=== PATIENT | male | born 1955 | race Caucasian/White ===

== ENCOUNTER → 2016-05-19 | Outpatient (CLI) | payer OTHER ==
[~2016-05-19] MED LIST: ALBU1AER9 INH; ASPCH81X PO; LISI10TA PO; LOVA40TA4 PO; MULT-506 PO; RANI1TAB77 PO
[2016-05-19 12:28] LABS: ALT/SGPT 34 U/L (12-78); AST/SGOT 22 U/L (15-37); BLOOD UREA NITROGEN 19 mg/dl (7-18); BUN/CREATININE RATIO 19.3 (10-20); CALCIUM 9.1 mg/dl (8.5-10.1); CARBON DIOXIDE 28 mmol/L (21-32); CHLORIDE 107 mmol/L (98-107); GLUCOSE 98 mg/dl (70-99); POTASSIUM 4.3 mmol/L (3.5-5.1); SODIUM 141 mmol/L (136-145)
[2016-05-19 12:31] LABS: ALB/GLOB RATIO 1.1 (0.9-2); ALKALINE PHOSPHATASE 67 U/L (45-117); CHOLESTEROL 160 mg/dl (0-200); CHOLESTEROL/HDL RATIO 3.5; HDL CHOLESTEROL 46 mg/dl; LDL CHOLESTEROL CALCULATED 78 mg/dl; TRIGLYCERIDES 182 mg/dl (0-150); VERY LOW DENSITY LIPOPROT CALC 36 mg/dl
== END | disposition home or self-care (01) ==
LOC: C.LABBFT 10:39
PROVIDERS: ATTEND Nurse Practitioner
DX: E78.5 Hyperlipidemia, unspecified (principal); Z11.59 Encounter for screening for other viral diseases

== ENCOUNTER → 2017-05-04 | Outpatient (CLI) | payer OTHER ==
[2017-05-04 12:28] LABS: HEMATOCRIT 42.8 % (42-52); HEMOGLOBIN 14.8 g/dL (14.0-18.0); MEAN CELL VOLUME 92.8 fL (80-100); MEAN CORPUSCULAR HEMOGLOBIN 32.1 pg (25-34); MEAN CORPUSCULAR HGB CONC 34.6 g/dl (32-36); MEAN PLATELET VOLUME 9.9 fL (7.4-10.4); PLATELET COUNT 210 K/uL (130-400); RED CELL DISTRIBUTION WIDTH CV 13.6 % (11.5-14.5); WHITE BLOOD COUNT 7.68 K/uL (4.8-10.8)
[2017-05-04 12:39] LABS: ALBUMIN 4.1 gm/dl (3.4-5.0); ALT/SGPT 28 U/L (12-78); BLOOD UREA NITROGEN 19 mg/dl (7-18); CALCIUM 8.9 mg/dl (8.5-10.1); CARBON DIOXIDE 25 mmol/L (21-32); CHOLESTEROL 157 mg/dl (0-200); CREATININE 1.08 mg/dl (0.60-1.40); GLUCOSE 104 mg/dl (70-99); POTASSIUM 3.8 mmol/L (3.5-5.1); SODIUM 138 mmol/L (136-145)
[2017-05-04 12:44] LABS: ALKALINE PHOSPHATASE 59 U/L (45-117); AST/SGOT 19 U/L (15-37); LDL CHOLESTEROL CALCULATED 73 mg/dl; TOTAL PROTEIN 7.2 gm/dl (6.4-8.2)
== END | disposition home or self-care (01) ==
LOC: C.LABBFT 09:09
PROVIDERS: ATTEND Nurse Practitioner
DX: E78.5 Hyperlipidemia, unspecified (principal); Z12.5 Encounter for screening for malignant neoplasm of prostate

== ENCOUNTER 2024-03-12 11:02 | Inpatient (IN) ==
--- NOTE | 2024-03-12 11:29 | Emergency Department Note ---
Impression & Plan Generalized weakness, Ambulatory dysfunction ED Provider Note HISTORY OF PRESENT ILLNESS: Patient is a 68-year-old male presenting with right hand numbness, gait instability and bilateral leg weakness. Patient states that he woke up this morning and his entire right hand felt like he had slept on it wrong. He locates the numbness from the wrist down. Denies any numbness or tingling in the rest of the arm. He states that he got up out of bed and felt very unsteady on his feet and had to grab for a cane, which she normally does not ambulate with. He states that he was very unsteady and felt like his legs were going to give out and so he called 911. He denies any chest pain or shortness of breath. He is complaining of a generalized headache. Denies any anticoagulation use. Denies any DVT or PE history. Denies any abdominal pain, nausea or vomiting. Denies any changes in vision. ROS: as above PHYSICAL EXAM: Constitutional: Patient appears in no acute distress. HENT: Head: Normocephalic and atraumatic. Eyes: EOMI, PERRL Mouth/Throat: Mucous membranes moist. Neck: Trachea midline. Neck supple. Cardiovascular: RRR, No murmurs, rubs or gallops. Intact distal pulses. Pulmonary/Chest: No respiratory distress. Breath sounds clear and equal bilaterally. No wheezes or rales. Abdominal: Abdomen soft, no tenderness, rebound or guarding. Musculoskeletal: No edema, tenderness or deformity noted. Skin: Warm and dry. No rash, erythema, pallor or cyanosis Psychiatric: Appropriate mood and affect for situation. Neurological: Alert and keenly responsive. Facies symmetric. Able to raise eyebrows, close eyes, smile, puff mouth, stick out tongue, move tongue left and right and raise palate symmetrically. Able to shrug shoulders. PERRLA. SILT to forehead below eye and at jawline. Can hear soft noise bilaterally. Good finger to nose. Strength 5/5 in bilateral upper and lower extremities. SILT throughout bilateral upper and lower extremities. MDM: - Vitals signs stable. - History obtained via patient. History as above. - Patient has no focal neurological deficits on examination. NIH stroke scale 0. Symptoms started upon waking today, so not a candidate for TNK. - Chronic conditions affecting care: HTN; HLD; COPD - Differential diagnoses include, but are not limited to: CVA; intracranial hemorrhage; ACS; pneumonia; viral syndrome; dysrhythmia; electrolyte abnormality - Order placed for continuous cardiac monitoring. At this time, monitor showed rate of 78 bpm with normal sinus rhythm, per my interpretation. - External medical records reviewed. - EKG interpreted by myself showed normal sinus rhythm. Rate 80 bpm. QT 410. No acute ischemic changes. Noted to have an incomplete right bundle branch block. - Laboratory workup interpreted by myself showed normal WBC; normal PT/INR; slight hypokalemia (K 3.4); hyperglycemia (glucose 174) with normal anion gap; normal troponin; normal lipase - Viral respiratory panel negative - CXR negative for pneumonia, per my interpretation - CT head wo contrast negative for acute pathology. Noted have a 1.2 cm ill- defined hypodense focus in the periventricular/subcortical right frontal lobe which is new compared to November 2019 study. Radiology notes this could be progressive white matter disease versus age-indeterminate lacunar infarct. - CTA head negative for acute pathology per radiology. - CTA neck showed atherosclerosis of the carotid bulbs without high-grade stenosis and moderate to high-grade stenosis of the distal vertebral arteries, per radiology. - Patient was ambulated by nursing staff and he was able to walk on his own, but was slightly unsteady and complaining of feeling very dizzy and lightheaded. - Discussion was had with case therapist about patient's case and need for admission - Hospitalist consulted for admission - [facility] ASSESSMENT AND PLAN: Diagnosis: Generalized weakness; ambulatory dysfunction Plan: Admit Past Med/Surg History Problem List Stroke-like symptoms Ambulatory dysfunction (Acute) Generalized weakness (Acute) COPD (chronic obstructive pulmonary disease) (Chronic) Dyslipidemia (Chronic) Hypertension (Chronic) BPH loc w urin obs/LUTS (Chronic) Erectile dysfunction (Chronic) Surgical History History of craniotomy History of hernia repair History of appendectomy Social History Smoking Status: Former smoker Tobacco Type: Cigarettes Preferred Language: Slovak Feels Safe at Home: Yes Allergies Allergies Allergy/AdvReac Type Severity Reaction Status Date / Time No Known Drug Allergies Allergy Unknown . Verified 11/30/19 09:38 Home Meds Home Medications Medication Instructions Recorded Confirmed lisinopril 10 mg tablet 10 mg PO DAILY 02/06/19 03/12/24 budesonide 160 mcg-glycopyr 9 1 inh inhalation BID 03/12/24 03/12/24 mcg-formot 4.8 mcg/actuation HFA inhaler (Breztri Aerosphere) gabapentin 100 mg capsule 300 mg PO HS PRN Pain 03/12/24 03/12/24 montelukast 10 mg tablet 10 mg PO DAILY 03/12/24 03/12/24 rosuvastatin 20 mg tablet 20 mg PO DAILY 03/12/24 03/12/24 Previous Rx's Medication Instructions Recorded albuterol sulfate 90 mcg/actuation 2 puffs inhalation .COMPLEX PRN 11/22/18 aerosol inhaler (Ventolin HFA) shortness of breath or wheezing #18 grams aspirin 81 mg tablet,delayed 81 mg PO DAILY #30 tabs 12/06/18 release tamsulosin 0.4 mg capsule 0.4 mg PO DAILY #30 caps 08/09/19 finasteride 5 mg tablet 5 mg PO DAILY #90 tabs 09/20/19 cyclobenzaprine 10 mg tablet 10 mg PO TID PRN muscle spasm #20 11/30/19 tabs Results & Data (ED) Vital Signs Vital Signs - 24 hr 03/12/24 11:09 03/12/24 11:10 03/12/24 11:31 Temperature 36.5 C Temperature Source Oral Pulse Rate 83 89 77 Pulse Rate [Apical] Respiratory Rate 20 16 Respiratory Effort / Characteristics Non-Labored Respiratory Depth Normal Blood Pressure 127/75 114/90 Blood Pressure [Left Arm] Blood Pressure Mean 92 95 Blood Pressure Mean [Left Arm] Pulse Oximetry 97 96 Oxygen Delivery Method Room Air Sepsis Recent Fever Within 48 Hours No Sepsis New/Unexplained Change in Mental Status No Sepsis Action Taken by Nursing No Action Required 03/12/24 11:37 03/12/24 14:13 Temperature Temperature Source Pulse Rate Pulse Rate [Apical] 83 Respiratory Rate 16 Respiratory Effort / Characteristics Respiratory Depth Blood Pressure Blood Pressure [Left Arm] 112/71 Blood Pressure Mean Blood Pressure Mean [Left Arm] 84 Pulse Oximetry 96 100 Oxygen Delivery Method Room Air Room Air Sepsis Recent Fever Within 48 Hours Sepsis New/Unexplained Change in Mental Status Sepsis Action Taken by Nursing Laboratory Data 03/12/24 11:34 03/12/24 11:34 Lab Results 03/12/24 03/12/24 03/12/24 Range/Units 11:24 11:34 12:33 WBC 8.84 (4.8-10.8) K/ul RBC 5.21 (4.70-6.10) M/uL Hgb 16.1 (14.0-18.0) g/dl Hct 45.8 (42.0-52.0) % MCV 87.9 (80.0-100.0) fL MCH 30.9 (25.0-34.0) pg MCHC 35.2 (32.0-36.0) g/dL RDW Std Deviation 43.8 (36.4-46.3) fL RDW Coeff of Jose M 13.7 (11.5-14.5) % Plt Count 254 (130-400) K/uL MPV 9.5 (9.4-12.4) fL Immature Gran % (Auto) 0.3 % Neut % (Auto) 83.5 % Lymph % (Auto) 10.4 % [place] % (Auto) 5.4 % Eos % (Auto) 0.1 % Baso % (Auto) 0.3 % Neut # (Auto) 7.37 H (1.40-6.50) K/uL Lymph # (Auto) 0.92 L (1.20-3.40) K/uL [place] # (Auto) 0.48 (0.11-0.59) K/uL Eos # (Auto) 0.01 (0.00-0.50) K/uL Baso # (Auto) 0.03 (0.00-0.20) K/uL Immature Gran # (Auto) 0.03 (0.01-0.20) K/uL PT Cancelled 11.6 INR Cancelled 1.1 Sodium 136 (136-145) mmol/L Potassium 3.4 L (3.5-5.1) mmol/L Chloride 104 (98-107) mmol/L Carbon Dioxide 22 (21-32) mmol/L Anion Gap 10 (3-11) BUN 19 (6-23) mg/dl Creatinine 1.11 (0.6-1.4) mg/dl Est Cr Clr Drug Dosing 67.1 ml/min eGFR 72.33 BUN/Creatinine Ratio 17.1 (10-20) Glucose 172 H (70-99(Fasting)) mg/dl Calcium 9.5 (8.6-10.3) mg/dl Magnesium 2.1 (1.7-2.4) mg/dl Total Bilirubin 0.8 (0.2-1.0) mg/dl AST 21 (13-39) U/L ALT 16 (7-52) U/L Alkaline Phosphatase 67 (34-104) U/L Troponin I High Sens 11.2 (0-20) pg/ml Total Protein 7.6 (6.0-8.3) gm/dl Albumin 4.6 (3.4-5.0) gm/dl Globulin 3.0 (2.5-4.0) gm/dl Albumin/Globulin Ratio 1.5 (0.9-2) Lipase 45 (11-82) U/L Adenovirus (PCR) Not Detected (NotDetected) B. pertussis DNA (PCR) Not Detected (NotDetected) B.parapertussis DNA PCR Not Detected (NotDetected) C. pneumoniae DNA (PCR) Not Detected (NotDetected) Coronavirus OC43 (PCR) Not Detected (NotDetected) Coronavirus HKU1 (PCR) Not Detected (NotDetected) Coronavirus 229E (PCR) Not Detected (NotDetected) SARS-CoV-2 (PCR) Not Detected (NotDetected) Coronavirus NL63 (PCR) Not Detected (NotDetected) Human Metapneumovir PCR Not Detected (NotDetected) Influenza Type A (PCR) Not Detected (NotDetected) Influenza Type B (PCR) Not Detected (NotDetected) M. pneumoniae (PCR) Not Detected (NotDetected) Parainfluenza 1 (PCR) Not Detected (NotDetected) Parainfluenza 2 (PCR) Not Detected (NotDetected) Parainfluenza 3 (PCR) Not Detected (NotDetected) Parainfluenza 4 (PCR) Not Detected (NotDetected) RSV (PCR) Not Detected (NotDetected) Entero/Rhino (PCR) Not Detected (NotDetected) Administered Medications Discontinued Medications Acetaminophen (Ofirmev) 1,000 mg in 100 mls @ 400 mls/hr IV NOW STA Stop: 03/12/24 11:40 Last Infusion: 03/12/24 11:59 Dose: Infused Documented By: Admin: 03/12/24 11:33 Dose: 400 mls/hr Documented By: DORIS Ioversol (Optiray 320 125ml) 120 ml IV ONCE ONE Stop: 03/12/24 12:19 Last Admin: 03/12/24 12:19 Dose: 120 ml Documented By: JIMMY Imaging Data Radiologist's Impression: Chest X-Ray 03/12/24 11:09 XR chest 1V portable CLINICAL HISTORY: Chest pain, nonspecific COMPARISON STUDY: None FINDINGS: Heart size and pulmonary vasculature are normal. No effusion, consolidation, or pneumothorax. No acute osseous findings. IMPRESSION: No acute findings. ACT 112: Negative or not required by law. Electronically signed by: Rory Lizama M.D. 03/12/2024 11:[address] 03/12/24 11:26 CT head/brain wo con CLINICAL HISTORY: 68 years-old Male with weakness. Acute weakness TECHNIQUE: Multiple axial CT images of the head were obtained without contrast. A dose lowering technique was utilized adhering to the principles of ALARA. COMPARISON: CTA head and neck of second day, brain MRI 11/12/2019 FINDINGS: No acute intracranial hemorrhage, midline shift, intracranial mass, hydrocephalus, territorial ischemia or abnormal extra-axial collection. Encephalomalacia within the cerebellum redemonstrated. Involutional changes with mild white matter hypodensities redemonstrated suggestive of chronic microvascular ischemic disease. 1.2 cm ill-defined hypodense focus within the subcortical superior right frontal lobe on image 69 series 4 is new/progressed from prior. Prior left suboccipital craniectomy. The paranasal sinuses, mastoid air cells, and middle ear cavities are clear. IMPRESSION: 1. No acute intracranial hemorrhage, midline shift or acute territorial infarct. 2. Involutional changes with suggestion of chronic microvascular disease. 3. 1.2 cm ill-defined hypodense focus in the periventricular/subcortical right frontal lobe appears to be new compared to the 11/12/2019 study which may represent progressive white matter disease versus a small age indeterminate lacunar infarct. 4. Prior suboccipital craniectomy with cerebellar encephalomalacia redemonstrated. ACT 112: Negative or not required by law. The above report was generated using voice recognition software. It may contain grammatical, syntax or spelling errors. Electronically signed by: Barry Little M.D. 03/12/2024 12:31 PM Head CTA 03/12/24 11:26 CT angio head w con CLINICAL HISTORY: R hand numbness; bilat leg weakness TECHNIQUE: CT angiography of the head was performed following intravenous administration of iodinated contrast. Coronal and sagittal MIPS were obtained from the axial data set and were submitted for review. Automated dose lowering techniques and/or adjustment according to patient size were utilized for this examination. All measurements were calculated based on NASCET criteria. CT DOSE: 1060.21 mGy.cm Comparison: Comparison is made to MRI brain 11/12/2019 FINDINGS: CTA Head: The anterior and posterior cerebral circulations are patent. No hemodynamically significant stenosis, aneurysm, dissection, or arteriovenous malformation is shown. IMPRESSION: No occlusion, hemodynamically significant stenosis, aneurysm, dissection, or arteriovenous malformation in the major intracranial arteries. Assessment of stenosis of the internal carotid arteries is based on NASCET criteria. ACT 112: Negative or not required by law. Electronically signed by: Felix Potter M.D. 03/12/2024 12:28 PM Neck CTA 03/12/24 11:26 CT angio neck with con CLINICAL HISTORY: 68 years-old Male with R hand numbness; bilat leg weakness. Acute stroke like symptoms COMPARISON STUDY: CTA head of same day TECHNIQUE: Following the IV administration of 120 mL of Optiray, CT angiogram of the neck was performed from the aortic arch to the skull base. Images are reviewed in the axial, sagittal, and coronal planes. 3-D MIPS images are created and assessed. IV contrast was administered without complication. All measurements were calculated based on NASCET criteria. A dose lowering technique was utilized adhering to the principles of ALARA. FINDINGS: Three-vessel morphology of the thoracic aortic arch. There is patency of the innominate and images including the arteries. The common carotid arteries are patent. Atherosclerosis of the carotid bulbs without significant stenosis. Patent internal carotid arteries. Atherosclerosis of the cavernous, clinoid and supraclinoid segments. There is moderate stenosis of the supraclinoid segment right ICA on image 382 series 7. Dominant right vertebral artery demonstrates multifocal stenoses of the V2 segment secondary to cervical degenerative changes. Prominent atherosclerotic plaque of the V4 segment results in areas of moderate to high-grade stenosis. Developmentally diminutive left vertebral artery demonstrates high-grade stenosis of the V4 segment on image 309 series 7 secondary to calcified plaque. The basilar artery is patent. Short segment focus of high-grade stenosis within the P1 segment left posterior cerebral artery on image 309 series 7. Prior suboccipital craniectomy with cerebellar encephalomalacia. CTA head dictated separately. Unremarkable soft tissues. Lung apices are clear without pneumothorax. Degenerative changes of the cervical spine. IMPRESSION: 1. Atherosclerosis of the carotid bulbs without high-grade stenosis. 2. Moderate to high-grade stenosis of the distal vertebral arteries as above. 3. CTA of the head is dictated separately. ACT 112: Negative or not required by law. The above report was generated using voice recognition software. It may contain grammatical, syntax or spelling errors. Electronically signed by: Barry Little M.D. 03/12/2024 12:37 PM Discharge Plan Visit Data Chief Complaint: Cardiac Assessment Stated Complaint: CARDIAC ASSESSMENT ED Provider: Lulu Bass Discharge Problem: Generalized weakness, Ambulatory dysfunction Forms Stand Alone Forms: [employer] Prescriptions Prescriptions: No Action albuterol sulfate [Ventolin HFA] 90 mcg/actuation HFA aerosol inhaler 2 puffs INH .COMPLEX PRN (Reason: shortness of breath or wheezing) Qty: 18 2RF Rx Instructions: 2 puff INH every 4-6 hours PRN; aspirin 81 mg tablet,delayed release (DR/EC) 81 mg PO DAILY Qty: 30 11RF tamsulosin 0.4 mg capsule 0.4 mg PO DAILY Qty: 30 0RF finasteride 5 mg tablet 5 mg PO DAILY Qty: 90 1RF lisinopril 10 mg tablet 10 mg PO DAILY cyclobenzaprine 10 mg tablet 10 mg PO TID PRN (Reason: muscle spasm) Qty: 20 0RF montelukast 10 mg tablet 10 mg PO DAILY gabapentin 100 mg capsule 300 mg PO HS PRN (Reason: Pain) rosuvastatin 20 mg tablet 20 mg PO DAILY Breztri Aerosphere 160-9-4.8 mcg/actuation HFA aerosol inhaler 1 inh inhalation BID Referrals Referrals: Vani Raya PA-C [Primary Care Provider] -
[2024-03-12] MEDS: ACETAMINOPHEN 1,000 MG/100 ML VIAL IV STA (11:33)
--- NOTE | 2024-03-12 11:47 | XRay Report ---
XR chest 1V portable CLINICAL HISTORY: Chest pain, nonspecific COMPARISON STUDY: None FINDINGS: Heart size and pulmonary vasculature are normal. No effusion, consolidation, or pneumothora x. No acute osseous findings. IMPRESSION: No acute findings. ACT 112: Negative or not required by law. Electronically signed by: Rory Lizama M.D. 03/12/2024 11:46 AM
[2024-03-12 11:50] LABS: Basophils # (auto) 0.03 K/uL (0.00-0.20); Basophils % (auto) 0.3 %; Eosinophils # (auto) 0.01 K/uL (0.00-0.50); Eosinophils % (auto) 0.1 %; Hematocrit (blood only) 45.8 % (42.0-52.0); Hemoglobin 16.1 g/dl (14.0-18.0); Immature Granulocytes # (auto) 0.03 K/uL (0.01-0.20); Immature Granulocytes % (auto) 0.3 %; Lymphocytes # (auto) 0.92 K/uL (1.20-3.40); Lymphocytes % (auto) 10.4 %; Mean Corpuscular Hemoglobin 30.9 pg (25.0-34.0); Mean Corpuscular Hgb Conc 35.2 g/dL (32.0-36.0); Mean Corpuscular Volume 87.9 fL (80.0-100.0); Mean Platelet Volume 9.5 fL (9.4-12.4); Monocytes # (auto) 0.48 K/uL (0.11-0.59); Monocytes % (auto) 5.4 %; Neutrophils # (auto) 7.37 K/uL (1.40-6.50); Neutrophils % (auto) 83.5 %; Platelet Count 254 K/uL (130-400); RDW Coefficient of Variation 13.7 % (11.5-14.5); RDW Standard Deviation 43.8 fL (36.4-46.3); Red Blood Count 5.21 M/uL (4.70-6.10); White Blood Count 8.84 K/ul (4.8-10.8)
--- NOTE | 2024-03-12 11:58 | Electrocardiogram Report ---
Test Reason : Blood Pressure : */* mmHG Vent. Rate : 80 BPM Atrial Rate : 80 BPM P-R Int : 202 ms QRS Dur : 100 ms QT Int : 410 ms P-R-T Axes : 57 -52 67 degrees QTcB Int : 472 ms Normal sinus rhythm Incomplete right bundle branch block Left anterior fascicular block Minimal voltage criteria for LVH, may be normal variant ( R in aVL ) Abnormal ECG No previous ECGs available Confirmed by Handy Gaitan ([id number]) on 03/12/2024 11:57:38 AM Referred By: Confirmed By: Handy Gaitan
[2024-03-12 12:08] LABS: Albumin Globulin Ratio 1.5 (0.9-2); Albumin Level 4.6 gm/dl (3.4-5.0); BUN Creatinine Ratio 17.1 (10-20); Bilirubin,Total 0.8 mg/dl (0.2-1.0); Calcium 9.5 mg/dl (8.6-10.3); Creatinine Clr Calc Pharmacy 67.1 ml/min; Magnesium 2.1 mg/dl (1.7-2.4); Potassium 3.4 mmol/L (3.5-5.1); Total Protein 7.6 gm/dl (6.0-8.3)
[2024-03-12 12:13] LABS: Troponin I High Sensitivity 11.2 pg/ml (0-20)
[2024-03-12] MEDS: OPTIRAY 320 125ml IV ONE (12:19)
--- NOTE | 2024-03-12 12:30 | CT Scan Report ---
CT angio head w con CLINICAL HISTORY: R hand numbness; bilat leg weakness TECHNIQUE: CT angiography of the head was performed following intravenous administration of iodinated contrast. Coronal and sagittal MIPS were obtained from the axial data set and were submitted for rev iew. Automated dose lowering techniques and/or adjustment according to patient size were utilized fo r this examination. All measurements were calculated based on NASCET criteria. CT DOSE: 1060.21 mGy.cm Comparison: Comparison is made to MRI brain 11/12/2019 FINDINGS: CTA Head: The anterior and posterior cerebral circulations are patent. No hemodynamically significan t stenosis, aneurysm, dissection, or arteriovenous malformation is shown. IMPRESSION: No occlusion, hemodynamically significant stenosis, aneurysm, dissection, or arteriovenous malformati on in the major intracranial arteries. Assessment of stenosis of the internal carotid arteries is based on NASCET criteria. ACT 112: Negative or not required by law. Electronically signed by: Felix Potter M.D. 03/12/2024 12:28 PM
--- NOTE | 2024-03-12 12:32 | CT Scan Report ---
CT head/brain wo con CLINICAL HISTORY: 68 years-old Male with weakness. Acute weakness TECHNIQUE: Multiple axial CT images of the head were obtained without contrast. A dose lowering tech nique was utilized adhering to the principles of ALARA. COMPARISON: CTA head and neck of second day, brain MRI 11/12/2019 FINDINGS: No acute intracranial hemorrhage, midline shift, intracranial mass, hydrocephalus, territorial ischem ia or abnormal extra-axial collection. Encephalomalacia within the cerebellum redemonstrated. Involut ional changes with mild white matter hypodensities redemonstrated suggestive of chronic microvascular ischemic disease. 1.2 cm ill-defined hypodense focus within the subcortical superior right frontal l obe on image 69 series 4 is new/progressed from prior. Prior left suboccipital craniectomy. The paranasal sinuses, mastoid air cells, and middle ear cavitie s are clear. IMPRESSION: 1. No acute intracranial hemorrhage, midline shift or acute territorial infarct. 2. Involutional changes with suggestion of chronic microvascular disease. 3. 1.2 cm ill-defined hypodense focus in the periventricular/subcortical right frontal lobe appears t o be new compared to the 11/12/2019 study which may represent progressive white matter disease versus a small age indeterminate lacunar infarct. 4. Prior suboccipital craniectomy with cerebellar encephalomalacia redemonstrated. ACT 112: Negative or not required by law. The above report was generated using voice recognition software. It may contain grammatical, syntax o r spelling errors. Electronically signed by: Barry Little M.D. 03/12/2024 12:31 PM
[2024-03-12 12:35] LABS: Adenovirus PCR Not Detected (NotDetected); Bordetella parapertussis PCR Not Detected (NotDetected); Bordetella pertussis PCR Not Detected (NotDetected); Chlamydia pneumoniae PCR Not Detected (NotDetected); Coronavirus 229E PCR Not Detected (NotDetected); Coronavirus CoV-2 (COVID19)PCR Not Detected (NotDetected); Coronavirus HKU1 PCR Not Detected (NotDetected); Coronavirus NL63 PCR Not Detected (NotDetected); Coronavirus OC43PCR Not Detected (NotDetected); Human Metapneumovirus PCR Not Detected (NotDetected); Influenza A PCR Not Detected (NotDetected); Influenza B PCR Not Detected (NotDetected); Mycoplasma pneumoniae PCR Not Detected (NotDetected); Parainfluenza Virus 1 PCR Not Detected (NotDetected); Parainfluenza Virus 2 PCR Not Detected (NotDetected); Parainfluenza Virus 3 PCR Not Detected (NotDetected); Parainfluenza Virus 4 PCR Not Detected (NotDetected); Respiratory Syncytial VirusPCR Not Detected (NotDetected); Rhinovirus/Enterovirus PCR Not Detected (NotDetected)
--- NOTE | 2024-03-12 12:38 | CT Scan Report ---
CT angio neck with con CLINICAL HISTORY: 68 years-old Male with R hand numbness; bilat leg weakness. Acute stroke like sy mptoms COMPARISON STUDY: CTA head of same day TECHNIQUE: Following the IV administration of 120 mL of Optiray, CT angiogram of the neck was perform ed from the aortic arch to the skull base. Images are reviewed in the axial, sagittal, and coronal pl anes. 3-D MIPS images are created and assessed. IV contrast was administered without complication. Al l measurements were calculated based on NASCET criteria. A dose lowering technique was utilized adhe ring to the principles of ALARA. FINDINGS: Three-vessel morphology of the thoracic aortic arch. There is patency of the innominate and images in cluding the arteries. The common carotid arteries are patent. Atherosclerosis of the carotid bulbs wi thout significant stenosis. Patent internal carotid arteries. Atherosclerosis of the cavernous, clino id and supraclinoid segments. There is moderate stenosis of the supraclinoid segment right ICA on quan ge 382 series 7. Dominant right vertebral artery demonstrates multifocal stenoses of the V2 segment s econdary to cervical degenerative changes. Prominent atherosclerotic plaque of the V4 segment results in areas of moderate to high-grade stenosis. Developmentally diminutive left vertebral artery demons trates high-grade stenosis of the V4 segment on image 309 series 7 secondary to calcified plaque. The basilar artery is patent. Short segment focus of high-grade stenosis within the P1 segment left post erior cerebral artery on image 309 series 7. Prior suboccipital craniectomy with cerebellar encephalomalacia. CTA head dictated separately. Unrema rkable soft tissues. Lung apices are clear without pneumothorax. Degenerative changes of the cervical spine. IMPRESSION: 1. Atherosclerosis of the carotid bulbs without high-grade stenosis. 2. Moderate to high-grade stenosis of the distal vertebral arteries as above. 3. CTA of the head is dictated separately. ACT 112: Negative or not required by law. The above report was generated using voice recognition software. It may contain grammatical, syntax o r spelling errors. Electronically signed by: Barry Little M.D. 03/12/2024 12:37 PM
[2024-03-12 13:33] LABS: INR 1.1 (0.9-1.1); Prothrombin Time 11.6 Seconds (9.0-12.0)
--- NOTE | 2024-03-12 13:56 | History & Physical Report ---
Date of Service March 12, 2024 Assessment & Plan (1) Stroke-like symptoms: Plan: -NIHSS of 4, with right arm/right leg numbness, left facial droop, right leg ataxia -last known normal of 2am, work up with symptoms around 6 am, glucose 145 by EMS -differential includes stroke (possible left MCA distribution), less likely migraine, vertigo, hemorrhage, [place], [place] Plan: -aspirin, statin ordered and given -stroke order set and code stroke ordered -A1c, lipids ordered for risk stratification, check syphyllis as well -MR head ordered -neurology consult (2) Ambulatory dysfunction: Plan: -see above, likely stroke Plan: -PT/OT/speech evals per stroke order set (3) Right calf pain: Plan: -unclear etiology, could be 2/2 fall Plan: -check DVT scan (4) History of craniotomy: Plan: -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 (5) COPD (chronic obstructive pulmonary disease): Plan: -duonebs prn, incentive spirometer (6) Dyslipidemia: Plan: -continue statin (7) Hypertension: Plan: -permissive HTN to 220 systolic (8) BPH loc w urin obs/LUTS: Plan: -continue tamulosin History of Present Illness Chief Complaint: Strokelike Symptoms Primary Care Provider: Vani Raya PA-C Clive Shen Jr is a 68-year-old male with past medical history significant for HLD, HTN, prediabetes, COPD, GERD without esophagitis, BPH with LUTS, SNHL of both ears [wears hearing aids at baseline], PORSCHE [CPAP noncompliant], 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 History obtained from the patient and associated chart review. Patient seen at bedside with Dr. Garcia in the ED. Patient reports that he woke up this morning around 2AM and felt quite unsteady on his feet as both of his lower extremities felt weak. He was able to get out of the house later this morning to go help with turning on the lights at [facility] in [place]. However, he suddenly collapsed to the ground whilst doing so as his knees fully "gave out." This is what prompted the call to EMS. He did not pass out or hit his head when this occurred. He does feel as if his speech is "off" and he is endorsing some numbness/tingling in his right wrist/hand regions which both started around 2AM as well. Knees went weak and he just went down. Was a little wobbly when he got up this morning. Very unsteady gait. L eye vision worse than R. Legally blind. Numbness and tingling from the right wrist down. Chronic numbness in right thumb from a previous injury. Lateral aspect more numb/tingling on right hand. Stopped smoking in 1995. Has not had a drink in 3 weeks. Soreness in the right distal posterior calf region. Had to borrow a cane this morning as he was so unsteady on his feet. More numbness in the RLE>LLE. Speech sounds different per patient. Only gets 2-3 hours of sleep/night. 2AM last known well. Retired. 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 Father had a couple strokes before he passed. Still very wobbly on his feet. No new visual changes. Slight left facial droop on exam. Mild RLE drift. RLE tingly per patient. Some mild upper abdominal pain, seems chronic. Last BM this morning. Discussed code status at length, risks and benefits explained. Patient would like full code at this tie. Allergies Allergy/AdvReac Type Severity Reaction Status Date / Time No Known Drug Allergies Allergy Unknown . Verified 11/30/19 09:38 Home Medications Medication Instructions Recorded Confirmed Type albuterol sulfate 90 mcg/actuation 2 puffs inhalation .COMPLEX PRN 11/22/18 03/12/24 Rx aerosol inhaler (Ventolin HFA) shortness of breath or wheezing #18 grams aspirin 81 mg tablet,delayed 81 mg PO DAILY #30 tabs 12/06/18 03/12/24 Rx release lisinopril 10 mg tablet 10 mg PO DAILY 02/06/19 03/12/24 History tamsulosin 0.4 mg capsule 0.4 mg PO DAILY #30 caps 08/09/19 03/12/24 Rx finasteride 5 mg tablet 5 mg PO DAILY #90 tabs 09/20/19 03/12/24 Rx cyclobenzaprine 10 mg tablet 10 mg PO TID PRN muscle spasm #20 20 03/12/24 Rx tabs budesonide 160 mcg-glycopyr 9 1 inh inhalation BID 03/12/24 03/12/24 History mcg-formot 4.8 mcg/actuation HFA inhaler (Breztri Aerosphere) gabapentin 100 mg capsule 300 mg PO HS PRN Pain 03/12/24 03/12/24 History montelukast 10 mg tablet 10 mg PO DAILY 03/12/24 03/12/24 History rosuvastatin 20 mg tablet 20 mg PO DAILY 03/12/24 03/12/24 History Past Med/Surg History Problem List (Updated 03/12/24 @ 17:37 by Omar Garcia MD) Stroke-like symptoms Ambulatory dysfunction (Acute) Right calf pain History of craniotomy COPD (chronic obstructive pulmonary disease) (Chronic) Dyslipidemia (Chronic) Hypertension (Chronic) BPH loc w urin obs/LUTS (Chronic) Medical History Generalized weakness Erectile dysfunction Surgical History History of hernia repair History of appendectomy Social History Smoking Status: Former smoker Tobacco Type: Cigarettes Preferred Language: Yoruba Feels Safe at Home: Yes Review of Systems Review of Systems: At least ten systems reviewed and negative, except as noted in the HPI. Physical Exam Physical Exam: Gen: A&O 3 NAD HEENT: NCAT, EOMI, not icteric. External ears normal. No rhinorrhea. Moist mucous membranes. Neck: Supple, full range of motion, no observable masses, No meningeal sign. Lungs: No Respiratory distress. CV: RRR, no edema. Abdomen: Soft, nondistended, No rebound tenderness. MSK: No joint swelling, no redness. Skin: No rashes, petechiae, lesions. Normal color per patient. Neuro: NIHSS of 4, dysarthria, right limb ataxia, left sided facial droop, right leg motor drift Psych: Appropriate for situation. Results & Data Results & Data Vital Signs (Past 12 Hours) Vital Signs Temp Pulse Resp BP Pulse Ox O2 Del Method 03/12/24 11:37 96 Room Air 03/12/24 11:31 77 16 114/90 96 03/12/24 11:10 89 03/12/24 11:09 36.5 C 83 20 127/75 97 Room Air Laboratory Results Short CBC 03/12/24 Range/Units 11:34 WBC 8.84 (4.8-10.8) K/ul Hgb 16.1 (14.0-18.0) g/dl Hct 45.8 (42.0-52.0) % Plt Count 254 (130-400) K/uL BMP 03/12/24 11:34 Sodium 136 Potassium 3.4 L Chloride 104 Carbon Dioxide 22 BUN 19 Creatinine 1.11 Glucose 172 H Calcium 9.5 Liver Function 03/12/24 Range/Units 11:34 Total Bilirubin 0.8 (0.2-1.0) mg/dl AST 21 (13-39) U/L ALT 16 (7-52) U/L Alkaline Phosphatase 67 (34-104) U/L Albumin 4.6 (3.4-5.0) gm/dl Diagnostic Findings Chest X-Ray 03/12/24 11:09 XR chest 1V portable CLINICAL HISTORY: Chest pain, nonspecific COMPARISON STUDY: None FINDINGS: Heart size and pulmonary vasculature are normal. No effusion, consolidation, or pneumothorax. No acute osseous findings. IMPRESSION: No acute findings. ACT 112: Negative or not required by law. Electronically signed by: Rory Lizama M.D. 03/12/2024 11:[address] 03/12/24 11:26 CT head/brain wo con CLINICAL HISTORY: 68 years-old Male with weakness. Acute weakness TECHNIQUE: Multiple axial CT images of the head were obtained without contrast. A dose lowering technique was utilized adhering to the principles of ALARA. COMPARISON: CTA head and neck of second day, brain MRI 11/12/2019 FINDINGS: No acute intracranial hemorrhage, midline shift, intracranial mass, hydrocephalus, territorial ischemia or abnormal extra-axial collection. Encephalomalacia within the cerebellum redemonstrated. Involutional changes with mild white matter hypodensities redemonstrated suggestive of chronic microvascu lar ischemic disease. 1.2 cm ill-defined hypodense focus within the subcortical superior right frontal lobe on image 69 series 4 is new/progressed from prior. Prior left suboccipital craniectomy. The paranasal sinuses, mastoid air cells, and middle ear cavities are clear. IMPRESSION: 1. No acute intracranial hemorrhage, midline shift or acute territorial infarct. 2. Involutional changes with suggestion of chronic microvascular disease. 3. 1.2 cm ill-defined hypodense focus in the periventricular/subcortical right frontal lobe appears to be new compared to the 11/12/2019 study which may represent progressive white matter disease versus a small age indeterminate lacunar infarct. 4. Prior suboccipital craniectomy with cerebellar encephalomalacia redemonstrated. ACT 112: Negative or not required by law. The above report was generated using voice recognition software. It may contain grammatical, syntax or spelling errors. Electronically signed by: Barry Little M.D. 03/12/2024 12:31 PM Head CTA 03/12/24 11:26 CT angio head w con CLINICAL HISTORY: R hand numbness; bilat leg weakness TECHNIQUE: CT angiography of the head was performed following intravenous administration of iodinated contrast. Coronal and sagittal MIPS were obtained from the axial data set and were submitted for review. Automated dose lowering techniques and/or adjustment according to patient size were utilized for this examination. All measurements were calculated based on NASCET criteria. CT DOSE: 1060.21 mGy.cm Comparison: Comparison is made to MRI brain 11/12/2019 FINDINGS: CTA Head: The anterior and posterior cerebral circulations are patent. No hemodynamically significant stenosis, aneurysm, dissection, or arteriovenous malformation is shown. IMPRESSION: No occlusion, hemodynamically significant stenosis, aneurysm, dissection, or arteriovenous malformation in the major intracranial arteries. Assessment of stenosis of the internal carotid arteries is based on NASCET criteria. ACT 112: Negative or not required by law. Electronically signed by: Felix Potter M.D. 03/12/2024 12:28 PM Neck CTA 03/12/24 11:26 CT angio neck with con CLINICAL HISTORY: 68 years-old Male with R hand numbness; bilat leg weakness. Acute stroke like symptoms COMPARISON STUDY: CTA head of same day TECHNIQUE: Following the IV administration of 120 mL of Optiray, CT angiogram of the neck was performed from the aortic arch to the skull base. Images are reviewed in the axial, sagittal, and coronal planes. 3-D MIPS images are created and assessed. IV contrast was administered without complication. All measurements were calculated based on NASCET criteria. A dose lowering technique was utilized adhering to the principles of ALARA. FINDINGS: Three-vessel morphology of the thoracic aortic arch. There is patency of the innominate and images including the arteries. The common carotid arteries are patent. Atherosclerosis of the carotid bulbs without significant stenosis. Patent internal carotid arteries. Atherosclerosis of the cavernous, clinoid and supraclinoid segments. There is moderate stenosis of the supraclinoid segment right ICA on image 382 series 7. Dominant right vertebral artery demonstrates multifocal stenoses of the V2 segment secondary to cervical degenerative changes. Prominent atherosclerotic plaque of the V4 segment results in areas of moderate to high-grade stenosis. Developmentally diminutive left vertebral artery demonstrates high-grade stenosis of the V4 segment on image 309 series 7 secondary to calcified plaque. The basilar artery is patent. Short segment focus of high-grade stenosis within the P1 segment left posterior cerebral artery on image 309 series 7. Prior suboccipital craniectomy with cerebellar encephalomalacia. CTA head dictated separately. Unremarkable soft tissues. Lung apices are clear without pneumothorax. Degenerative changes of the cervical spine. IMPRESSION: 1. Atherosclerosis of the carotid bulbs without high-grade stenosis. 2. Moderate to high-grade stenosis of the distal vertebral arteries as above. 3. CTA of the head is dictated separately. ACT 112: Negative or not required by law. The above report was generated using voice recognition software. It may contain grammatical, syntax or spelling errors. Electronically signed by: Barry Little M.D. 03/12/2024 12:37 PM Medications Administered Discontinued Medications Acetaminophen (Ofirmev) 1,000 mg in 100 mls @ 400 mls/hr IV NOW STA Stop: 03/12/24 11:40 Last Infusion: 03/12/24 11:59 Dose: Infused Documented By: Admin: 03/12/24 11:33 Dose: 400 mls/hr Documented By: DORIS Ioversol (Optiray 320 125ml) 120 ml IV ONCE ONE Stop: 03/12/24 12:19 Last Admin: 03/12/24 12:19 Dose: 120 ml Documented By: JIMMY Code Status & VTE Plan Code Status FULL CODE (5) COPD (chronic obstructive pulmonary disease) COPD type: unspecified COPD Qualified Code(s): J44.9 - Chronic obstructive pulmonary disease, unspecified (7) Hypertension Hypertension type: primary hypertension Qualified Code(s): I10 - Essential (primary) hypertension
[2024-03-12] MEDS ORDERED: PHARMACIST DISCHARGE MED REC CONSULT PRN (14:37)
[2024-03-12 14:50] LABS: Estimated Average Glucose 111 mg/dl; Hemoglobin A1C 5.5 % (4.5-5.6)
[2024-03-12] MEDS: ASPIRIN 81 MG CHEW PO ONE (15:33)
[2024-03-12] MEDS: ATORVASTATIN 40 MG TAB PO STA (15:33)
--- NOTE | 2024-03-12 16:29 | Ultrasound Report ---
Clinical History: Rule out DVT Technique: Venous ultrasound evaluation was performed utilizing grayscale, color Doppler and wave form evaluation. Images were also obtained with and without compression Findings: The right common femoral, superficial femoral, popliteal, and visualized calf veins demonstrate normal anechoic lumens with full compressibility. Normal flow is seen on color Doppler images. Expected waveforms were produced with augmentation maneuvers Impression: No evidence of right leg deep venous thrombosis Electronically signed by Vinicius Hilton 03-12-2024 4:29 PM
[2024-03-12 17:31] LABS: Appearance Urine Clear (Clear); Bacteria Urine Automated None Seen (None Seen); Bilirubin Urine Negative (Negative); Blood Urine Negative (Negative); Cast Urine Automated 0-2 /lpf (0-2); Color Urine Yellow; Epithelial Cell Urine Auto 0-2 /hpf (0-2); Glucose Urine UA Negative (Negative); Hyaline Casts Urine Present /lpf (None Presnt); Ketones Urine Negative (Negative); Leukocyte Esterase Urine Negative (Negative); Nitrite Urine Negative (Negative); Protein Urine Trace (Negative); RBC Urine Automated 0-2 /hpf (0-2); Specific Gravity Urine > 1.045 (1.000-1.030); Urobilinogen Urine Negative (Negative); WBC Urine Automated 0-5 /hpf (0-5)
[2024-03-12] MEDS ORDERED: ALBUT/IPRATROP 3MG/0.5MG NEB 3 ML VIAL NEB PRN (17:36)
[2024-03-12] MEDS ORDERED: ALBUTEROL HFA 8 GM INHALER INH PRN (19:24)
--- OUTSIDE RECORDS SUMMARY | 2024-03-12 19:25 | External Medical Summary | Summary of Care ---
Author Name Unknown Organization [facility] Address [address] [place] [address] Phone [phone] Care Team Providers Care Exhibit Electrician Name Role Phone Vani Raya PA-C Primary Care Provider [phone] Reason for Visit * Reason Onset Date Comments Senior Clinical Research Associate Documentation 01/19/2024 Ad merchant Care Planning Encounter Details Date Type Department Care Team (Late st Contact Info) Description 01/19/2024 Telephone Care Coordination [address], [place] [address] Malika Campoverde, GREY PERCHER [address] [place] [address] Senior Clinical Research Associate Documentation (Advance Car... Allergies No known active allergiesdocumented as of this encounter (statuses as of 01/19/2024) Medications Aspirin 81 MG Oral Tablet Delayed ReleaseIndications :Mixed dyslipidemia TAKE ONE TABLET BY MOUTH IN THE MORNING 90 Tablet 3 2 Active Aspirin 81 MG Oral Tablet Delayed Release Take 1 Tablet by mouth in the morning. 9 Active Albuterol Sulfate HFA 108 (90 Base) MCG/ACT Inhalation Aerosol Solution INHALE 2 PUFFS BY MOUTH EVERY 4 HOURS NEEDED FOR COUGH, WHEEZE OR SHORTNESS OF BREATH. 72 g 2 11/21/2023 5:19 PM EDT 4 Active Rosuvastatin Calcium 20 MG Oral Tablet (Crestor)Indicatio ns:HTN, goal below 140/90,Mixed dyslipidemia Take 1 Tablet by mouth in the morning. 90 Tablet 3 11/13/2023 1:26 PM EDT 4 Active Budeson-Glycopyrro l-Formoterol 160-9-4.8 MCG/ACT Inhalation AerosolIndications :COPD, group B, by GOLD 2017 classification ([facility]) INHALE ONE PUFF BY MOUTH TWICE A DAY IN THE MORNING AND IN THE EVENING 32.1 g 3 11/25/2023 10:43 AM EDT 4 Active Montelukast Sodium 10 MG Oral Tablet (Singulair)Indicat ions:Cough,Nasal congestion TAKE ONE TABLET BY MOUTH EVERY DAY AT BEDTIME 90 Tablet 3 11/25/2023 10:43 AM EDT 4 Active Finasteride 5 MG Oral Tablet (Proscar)Indicatio ns:BPH with obstruction/lower urinary tract symptoms Take 1 Tablet by mouth in the morning. 90 Tablet 1 11/22/2023 5:40 PM EDT 4 Active Azelastine HCl 0.1 % Nasal Solution (Astelin)Indicatio ns:PND (post-nasal drip),Dysfunction of right eustachian tube Administer 1 [place] into nostril in the morning and 1 [place] before bedtime. 90 mL 1 11/22/2023 5:40 PM EDT 4 Active Cyclobenzaprine HCl 10 MG Oral Tablet (Flexeril)Indicati ons:Facet arthropathy, lumbar Take 1 Tablet by mouth at bedtime as needed for Muscle spasms. 30 Tablet 4 Active Gabapentin 100 MG Oral Capsule (Neurontin)Indicat ions:Facet arthropathy, lumbar,Narrowing of lumbar intervertebral disc space TAKE TWO TO THREE CAPSULES BY MOUTH AT BEDTIME NEEDED FOR BACK PAIN 270 Capsule 1 4 Active documented as of this encounter (statuses as of 01/19/2024) Active Problems Problem Noted Date Diagnosed Date Current moderate episode of major depressive disorder without prior episode 12/13/2021 COPD, group B, by GOLD 2017 classification 11/05 History of positive PPD 12/05/2018 Prediabetes 12/05/2018 Mixed dyslipidemia 11/07/2018 HTN, goal below 140/90 11/07/2018 Gastroesophageal reflux disease without esophagi tis 11/07/2018 BPH with obstruction/lower urinary tract symptom s 11/07/2018 Sensorineural hearing loss (SNHL) of both ears 0 11/07/2018 History of colonoscopy 11/07/2018 Overview (12/10/2018): csope 04/27/15--4 mm polyp in the descending colon,[id number]++ History of tobacco use 11/07/2018 Overview (11/07/2018): 26 yrs 2ppd ,quit 1995. 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 documented as of this encounter (statuses as of 01/19/2024) Resolved Problems Problem Noted Date Diagnosed Date Resolved Date Current moderate episode of major depressive disorder without prior episode 12/13/2021 2 Overview (12/27/2021): DUPLPICATE documented as of this encounter (statuses as of 01/19/2024) Immunizations Name Administration Dates Next Due COVID-19 mRNA, LNP-s, No Pre serve, 2-Dose Series (Moderna) 08/25/2020,07/28/2020 COVID-19, MRNA-LNP, PF, 30 M CG/0.3 mL, 12 YRS AND ABOVE, IM (PFIZER-Comirnaty) 12/06/2023 COVID-19, mRNA, LNP-s, PF, B ooster, 100mcg/0.5mg (Moderna) 07/26/2021 Covid-19, Mrna, Lnp-s, Pf, B ivalent, 30 Mcg, IM, 12 yrs and above (Pfizer) 12/14/2021 Pneumococcal Conjugate Vaccine, 20-valent (Prevn ar20) 07/18/2022 Seasonal Influenza, High Dos e, Trivalent, PF, IM (Fluzone HD) 12/06/2023 Seasonal Influenza, PF, 6 M & above, IM , (FluLaval or Fluzone) 12/11/2019,11/07/2018 Seasonal Influenza, QUAD, wi th Preserv, 6 mons & Above, 0.5 mL, IM 12/06/2017 Seasonal Influenza, Quadrivalent Hd (Fluzone Hd) 12/23/2022,12/13/2021 TD - Tetanus/Diptheria (ADULT) 02/24/2016 TDAP (age 10 and older)(Boostrix) 12/25/2015 Zoster Vaccine Recombinant (Shingrix) 03/13/2019 ,12/05/2018 documented as of this encounter Social History Tobacco Use Types Packs/Day Years Used Date Smoking Tobacco: Former Cigarettes 2.8 36 1 04/09/1959 - 02/07/1996 Pipe Cigars Passive Smoke Exposure: Past Smokeless Tobacco: Never Alcohol Use Standard Drinks/Week Comments Not Currently 0 (1 standard drink = 0.6 oz pure alcohol) drank heavily in past, none since 05/08/1994 PHQ-2 Answer Date Recorded PHQ Adult Total Score 0 11/08/2023 Hunger Vital Sign Answer Date Recorded Within the past 12 months, y ou worried that your food would run out before you got the money to buy more. Never true 05/10/19 24 Within the past 12 months, t he food you bought just didn't last and you didn't have money to get more. Never true 05/10/2023 Childcare Answer Date Recorded Do you feel overwhelmed with taking care of a child, family member or friend? No 05/10/2023 Does your family need help f inding childcare? (Household - for ages 0-17 years) Not on file 05/10/2023 Clothing Answer Date Recorded Have you been unable to get clothing when it was really needed? No 05/10/2023 Is your family able to get c lothes or diapers when needed? (Household - for ages 0-17 years) Not on file 05/10/2023 Personal Safety Answer Date Recorded Do you feel unsafe or have concerns for your saf ety? No 05/10/2023 Do you have concerns for you r family's safety? (Household - for ages 0-17 years) Not on file 05/10/2023 Utilities Answer Date Recorded Do you have trouble paying y our heating, water, or electric bill? No 05/10/2023 Is your family able to pay t he heat, water, or electric bill? (Household - for ages 0-17 years) Not on file 05/10/2023 Does your family have access to good internet? (Household - for ages 0-17 years) Not on file 05/10/2023 Employment Status Answer Date Recorded Are you unemployed or without regular income? No 05/10/2023 Does the household have a re gular source of income? (Household - for ages 0-17 years) Not on file 05/10/2023 Social Connections Answer Date Recorded How often do you feel lonely or isolated from th ose around you? Never 05/10/2023 Financial Resource Strain Answer Date R ecorded Do you have any trouble payi ng for your medications, or do you think you might in the future? No 05/10/2023 Does your family have troubl e paying for medicine? (Household - for ages 0-17 years) Not on file 05/10/2023 Transportation Needs Answer Date Record ed READ ONLY Do you have troubl e getting a ride to medical visits or work? Never True 05/10/2023 Does your family have a hard time getting a ride to doctors visits? (Household - for ages 0-17 years) Not on file 05/10/2023 Has lack of transportation k ept you from medical appointments, meetings, work, or from getting things needed for daily living? Check all that apply. (Adult - for ages 18 years and over) Not on file 05/10/2023 Do you (or your family) have trouble finding or paying for a ride (transportation)? (Household - for ages 0-17 years) Not on file 05/10/2023 Housing Stability Answer Date Recorded Do you currently live in a s helter or have no steady place to sleep at night? No 05/10/2023 READ ONLY Do you think you a re at risk of becoming homeless? No 05/10/2023 Does your family worry about paying for your home or becoming homeless? (Household - for ages 0-17 years) Not on file 0 05/10/2023 Are you homeless or worried that you might be in the future? (Adult - for ages 18 years and over) Not on file Are you (or your family) caterina eless or worried that you might be in the future? (Household - for ages 0-17 years) Not on file Food Insecurity Answer Date Recorded Do you need food for this week? No 05/10/2023 Are you able to get enough f ood for your family? (Household - for ages 0-17 years) Not on file 05/10/2023 Does your family need food t his week? (Household - for ages 0-17 years) Not on file 05/10/2023 Do you always have enough fo od for your family? (Household - for ages 0-17 years) Not on file 05/10/2023 Sex and Gender Information Value Date Recorded Sex Assigned at Male 11/07/2018 12:04 PM EDT Legal Sex Male 7:01 AM EST Gender Identity Male 11/07/2018 12:04 PM EDT Sexual Orientation Straight 11/07/2018 12 :04 PM EDT documented as of this encounter Miscellaneous Notes * ACP (Advance Care Planning) - Malika Campoverde MSW - 01/19/2024 12:28 PM EST Advance Care Planning Advance Directive Documents Chart Audit Danette PICKETT Review of Advance Directives scanned to chart; per requirements of [place] law (Act 169 of 2005) Document reviewed is Advanced Directive signed on 06/04/23; scanned on 12/07/23 is Valid and correct. Additional comments: Health Care Agent contact information updated and advance directive document attached to support surrogate decision maker title. Malika GuevaraChoices Treating Inspector General Email: [email or web address] General documented in this encounter Plan of Treatment Upcoming Encounters Date Type Department Care Team ([facility] st Contact Info) Description 06/07/2024 12:00 PM EDT Office Visit [facility] [address] [place] [phone] Vani Raya PA-C [address] [place] [id number] 11/11/2024 1:00 PM EDT Nurse Only Ancillary Department, [address] [place] [id number] Carolyn, Nurse Annual Wellness [address] [place] [address] Health Maintenance Due Date Last Done Comments Cologuard 11/04/2000 Fecal Occult Blood Test 11/04/2000 Sigmoidoscopy 11/04/2000 *BASELINE EKG FOR HTN 06/13/2021 GFR 05/28/2024 05/29/2023, 11/04, 12/06/2021, Additional history exists HbA1c 05/28/2024 05/29/2023, 11/04, 12/06/2021, Additional history exists Adult Wellness Visit 11/07/2024 11/08/2023 Depression Monitoring 11/07/2024 11/08/2023 O2 ASSESSMENT COMPLETED IN PAST YEAR FOR COPD 12/05/2024 12/06/2023 Colonoscopy 04/27/2025 04/27/2015 Colorectal Cancer Screening 04/27/2025 Albumin/Creatinine Ratio 05/28/2026 05/29/2023, 1005/2021 Lipid Panel 05/28/2028 05/29/2023, 05/05, 12/06/2021, Additional history exists DTap/Tdap Vaccines (4 - Td or Tdap) 11/09/2033 11/10/2023, 02/24/2016, 12/25/2015 Zoster Vaccines Completed 03/13/2019, 12/05/2018 Alpha-1 Antitrypsin Completed 07/14/2021 Pneumococcal Vaccine: 65+ Years Completed 07/18/2022 AAA Screening Completed 12/08/2022 COVID-19 Vaccine Completed 12/06/2023, 01/2022, 07/26/2021, Additional history exists Influenza Vaccine (FLU shot) Completed 04/2023, 12/23/2022, 12/13/2021, Additional history exists HPV (Gardasil) Vaccine Aged Out No lo nger eligible based on patient's age to complete this topic Hepatitis B Vaccine Aged Out No longe r eligible based on patient's age to complete this topic MENINGOCOCCAL (MENACTRA/MENVEO) Aged Out No longer eligible based on patient's age to complete this topic documented as of this encounter Medical Devices Not on filedocumented as of this encounter Advance Directives Documents on File Type Date Recorded 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
--- OUTSIDE RECORDS SUMMARY | 2024-03-12 19:25 | External Medical Summary | Summary of Care ---
Author Name Unknown Organization [facility] Address [address] [place] [address] Phone [phone] Care Team Providers Care Piston Maker Name Role Phone Vani Raya PA-C Primary Care Provider [phone] Reason for Visit * Reason Onset Date Comments Follow Up Pt states that h e is here for a 6 month return Medication Administration 12/06/2023 Flu an d/or Pneumo Inj Encounter Details Date Type Department Care Team (Latest Contact Info) Description 12/06/2023 11:40 AM EDT Office Visit [facility] [address] [place] [address] Vani Raya PA-C [address] [place] [address] Need for prophylactic vaccination and inoculation against influenza*; HTN, goal below 140/90; Prediabetes; Facet arthropathy, lumbar; Screening for prostate cancer; Vitamin D deficiency; Narrowing of lumbar intervertebral disc space Allergies No known active allergiesdocumented as of this encounter (statuses as of 12/06/2023) Medications Medication Sig Dispensed Refills Start Date End Date Status Aspirin 81 MG Oral Tablet Delayed ReleaseIndications: Mixed dyslipidemia TAKE ONE TABLET BY MOUTH IN THE MORNING 90 Tablet 3 12/13/2021 Active Tamsulosin HCl 0.4 MG Oral Capsule (Flomax) TAKE ONE CAPSULE BY MOUTH EVERY MORNING 90 Capsule 1 12/12/2022 Active Lisinopril 10 MG Oral Tablet (Prinivil)Indicatio ns:HTN, goal below 140/90 TAKE ONE TABLET BY MOUTH EVERY MORNING 90 Tablet 1 12/12/2022 Active Aspirin 81 MG Oral Tablet Delayed Release Take 1 Tablet by mouth in the morning. 12/06/2018 Active Albuterol Sulfate HFA 108 (90 Base) MCG/ACT Inhalation Aerosol Solution INHALE 2 PUFFS BY MOUTH EVERY 4 HOURS NEEDED FOR COUGH, WHEEZE OR SHORTNESS OF BREATH. 72 g 2 06/01/2023 Active Rosuvastatin Calcium 20 MG Oral Tablet (Crestor)Indication s:HTN, goal below 140/90,Mixed dyslipidemia Take 1 Tablet by mouth in the morning. 90 Tablet 3 06/01/2023 Active Budeson-Glycopyrrol -Formoterol 160-9-4.8 MCG/ACT Inhalation AerosolIndications: COPD, group B, by GOLD 2017 classification ([facility]) INHALE ONE PUFF BY MOUTH TWICE A DAY IN THE MORNING AND IN THE EVENING 32.1 g 3 09/01/2023 Active Montelukast Sodium 10 MG Oral Tablet (Singulair)Indicati ons:Cough,Nasal congestion TAKE ONE TABLET BY MOUTH EVERY DAY AT BEDTIME 90 Tablet 3 09/01/2023 Active Finasteride 5 MG Oral Tablet (Proscar)Indication s:BPH with obstruction/lower urinary tract symptoms Take 1 Tablet by mouth in the morning. 90 Tablet 1 11/21/2023 Active Azelastine HCl 0.1 % Nasal Solution (Astelin)Indication s:PND (post-nasal drip),Dysfunction of right eustachian tube Administer 1 Barney into nostril in the morning and 1 Barney before bedtime. 90 mL 1 11/21/2023 Active Cyclobenzaprine HCl 10 MG Oral Tablet (Flexeril)Indicatio ns:Facet arthropathy, lumbar Take 1 Tablet by mouth at bedtime as needed for Muscle spasms. 30 Tablet 12/06/2023 Active Gabapentin 100 MG Oral Capsule (Neurontin)Indicati ons:Facet arthropathy, lumbar,Narrowing of lumbar intervertebral disc space TAKE TWO TO THREE CAPSULES BY MOUTH AT BEDTIME NEEDED FOR BACK PAIN 270 Capsule 1 12/06/2023 Active Gabapentin 100 MG Oral Capsule (Neurontin)Indicati ons:Narrowing of lumbar intervertebral disc space,Facet arthropathy, lumbar TAKE TWO TO THREE CAPSULES BY MOUTH AT BEDTIME NEEDED FOR BACK PAIN 270 Capsule 1 12/12/2022 4 Discontinu ed(Refill) documented as of this encounter (statuses as of 12/06/2023) Active Problems Problem Noted Date Diagnosed Date [...] ears 0 11/07/2018 History of colonoscopy 11/07/2018 Overview: csope 04/27/15--4 mm polyp in the descending colon,[id number]++ History of tobacco use 11/07/2018 Overview: 26 yrs 2ppd ,quit 1995. 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 documented as of this encounter (statuses as of 12/06/2023) Resolved Problems Problem Noted Date Diagnosed Date Resolved Date Current moderate episode of major depressive disorder without prior episode 12/13/2021 2 Overview: DUPLPICATE documented as of this encounter (statuses as of 12/06/2023) Immunizations Name Administration Dates Next Due COVID-19 mRNA, LNP-s, No Pre serve, 2-Dose Series (Moderna) 08/25/2020,07/28/2020 COVID-19, MRNA-LNP, 24-25, P R, 30MCG/0.3ML, IM, 12YRS AND ABOVE (Pairin-Comirnat) 12/06/2023 COVID-19, mRNA, LNP-s, PF, B ooster, [...] Passive Smoke Exposure: Past Smokeless Tobacco: Never Tobacco Cessation:Counseling Given: Not Answered Alcohol Use Standard Drinks/Week Comments Not Currently [...] No 05/10/2023 Does the household have a caro centerr source of income? (Household - for ages [...] Assigned at Male 11/07/2018 12:04 PM EDT Gender Identity Male 11/07/2018 12:04 PM EDT Sexual Orientation Straight 11/07/2018 12 :04 PM EDT Job Start Date Occupation Industry Not on file Not on file Not on file documented as of this encounter Last Filed Vital Signs Vital Sign Reading Time Taken Comments Blood Pressure 118/64 12/06/2023 11:45 AM EDT Pulse 83 12/06/2023 11:45 AM EDT Temperature 35.9 C (96.7 F) 12/06/2023 11:45 AM E DT Respiratory Rate 16 12/06/2023 11:45 AM EDT Oxygen Saturation 96% 12/06/2023 11:45 AM EDT Inhaled Oxygen Concentration - - Weight 87.8 kg (193 lb 9.6 oz) 12/06/2023 11:45 AM EDT Height 165.1 cm (5' 5") 12/06/2023 11:45 AM EDT Body Mass Index 32.22 12/06/2023 11:45 AM EDT documented in this encounter Progress Notes * Joann Hoover LPN - 12/06/2023 12:01 PM EDT PRE - ADMINISTRATION DOCUMENTATION Are you experiencing any cold symptoms or fever? No Have you had Guillain-Hardy Syndrome (an illness that causes paralysis) within the last 6 weeks? No Have you had the flu shot in the past? YES Have you ever had a reaction to the flu shot? Luly Hoover LPN, 12/06/2023 12:01 PM Immunization Administration Documentation Time Out Procedure Performed: Yes Patient Identified (Ask Name/Date of ): Yes Does the patient have a fever greater than 101 degrees today? No Patient allergic to latex? No VFC Stock: No Immunization(s) verified: Yes, Immunization Name: Flu and COVID 19, VIS Sheet(s) given: Yes Verified Side and Site: Yes Verified Shot(s) with Parent(s)/Patient: Yes * Vani Raya PA-C - 12/06/2023 11:48 AM EDT Images from the original note were not included. History of Present Illness Clive Shen is a 68 year old male that presents for Follow Up (Pt states that he is here for a6 month return ) Here for reg return Back bothering him Hurts to sit awhile Muscles tight Wants to try a muscle relaxant. Would like flu shot. Wants covid vaccine. Component Latest Ref Rng 05/29/2023 07/13/2023 BUN 6 - 20 mg/dL 20 CREATININE 0.6 - 1.2 mg/dL 1.1 EGFR >=60 mL/min 75 SODIUM 135 - 146 mmol/L 141 POTASSIUM 3.5 - 5.1 mmol/L 4.7 CHLORIDE 98 - 107 mmol/L 103 CO2 22 - 32 mmol/L 26 ANION GAP 7 - 15 mmol/L 12 GLUCOSE 70 - 120 mg/dL 114 Albumin 3.8 - 5.0 g/dL 4.5 AST 10 - 50 U/L 24 Alkaline Phosphatase 35 - 130 U/L 80 Bilirubin, Total <=1.2 mg/dL 0.5 CALCIUM 8.4 - 10.2 mg/dL 9.2 Protein 6.0 - 8.3 g/dL 7.0 ALT 10 - 50 U/L 26 Triglycerides <=174 mg/dL 233 (H) Cholesterol <200 mg/dL 254 (H) HDL Cholesterol >39 mg/dL 44 Non-HDL Cholesterol <=159 mg/dL 210 (H) LDL Cholesterol <=129 mg/dL 163 (H) Albumin, Random Urine mg/dL <1.20 Creatinine, Random Urine mg/dL 192 Albumin / Creatinine Ratio, Urine <30 mg/g Creat <6 Hemoglobin A1C 4.0 - 5.6 % 5.4 Estimated Average Glucose <126 mg/dL 108 PSA <4.10 ng/mL 2.99 LDL Cholesterol (Direct Measure) <=129 mg/dL 165 (H) 25-Hydroxy Vitamin D >19 ng/mL 27 Vitamin B12 232 - 1,245 pg/mL 724 Legend: (H) High Past Medical History: Diagnosis Date COPD (chronic obstructive pulmonary disease) (HCC) Sleep apnea, obstructive Cyclobenzaprine HCl 10 MG Oral Tablet (Flexeril) Azelastine HCl 0.1 % Nasal Solution (Astelin) Finasteride 5 MG Oral Tablet (Proscar) Fbrdgzl-Uppmckznxpo-Rhtvrwsdac 160-9-4.8 MCG/ACT Inhalation Aerosol Montelukast Sodium 10 MG Oral Tablet (Singulair) Albuterol Sulfate HFA 108 (90 Base) MCG/ACT Inhalation Aerosol Solution Aspirin 81 MG Oral Tablet Delayed Release Rosuvastatin Calcium 20 MG Oral Tablet (Crestor) Gabapentin 100 MG Oral Capsule (Neurontin) Lisinopril 10 MG Oral Tablet (Prinivil) Tamsulosin HCl 0.4 MG Oral Capsule (Flomax) Aspirin 81 MG Oral Tablet Delayed Release Physical Exam Vitals: 12/06/23 1145 Temp: 35.9 C (96.7 F) Pulse: 83 Resp: 16 SpO2: 96% BP: 118/64 BMI: 32.22 BP Readings from Last 3 Encounters: 12/06/23 118/64 11/21/23 130/82 11/08/23 134/70 Wt Readings from Last 3 Encounters: 12/06/23 87.8 kg (193 lb 9.6 oz) 11/21/23 87.2 kg (192 lb 4.8 oz) 11/08/23 86 kg (189 lb 8 oz) BMI Readings from Last 3 Encounters: 12/06/23 32.22 kg/m 11/21/23 32.00 kg/m 11/08/23 31.53 kg/m Ht Readings from Last 3 Encounters: 12/06/23 1.651 m (5' 5") 11/08/23 1.651 m (5' 5") 06/01/23 1.702 m (5' 7") General: alert, healthy, and no distress Head: Normocephalic, No masses, lesions, tenderness or abnormalities Eye Exam: PERRLA, extraocular movements intact, conjunctiva are pink and non- injected, sclera clear Ears: External ears normal, Canals clear, TM's Normal Nose: no mucosal erythema, no mucosal edema, no purulent discharge Oropharynx: no exudate, no erythema, lips, buccal mucosa, and tongue normal, and mucous membranes are moist Neck: supple, no adenopathy, no bruits, thyroid normal size, non-tender, without nodularity Heart: regular rate & rhythm, no murmur, no gallops, S-1 normal, and S-2 normal Lungs: chest symmetric with normal AP diameter, no chest deformities noted, no chest wall tenderness, lungs clear to auscultation Abd: reducible umbilical hernia Assessment and Plan Need for prophylactic vaccination and inoculation against influenza (Primary) - INFLUENZA VAC., TRIVALENT, HD, PF, 65 AND ABOVE, 0.5 ML IM (FLUZONE HD) - COVID-19, MRNA-LNP, PF, 24-25, 30MCG/0.3ML, IM, 12YRS AND ABOVE (PFIZER) HTN, goal below 140/90 - LDL CHOLESTEROL (DIRECT MEASURE); Future; Expected date: 05/04/2024 - COMPREHENSIVE METABOLIC PANEL; Future; Expected date: 05/04/2024 - ALBUMIN / CREATININE RATIO, URINE; Future; Expected date: 05/04/2024 Prediabetes - COMPREHENSIVE METABOLIC PANEL; Future; Expected date: 05/04/2024 - HEMOGLOBIN A1C; Future; Expected date: 05/04/2024 Facet arthropathy, lumbar - Cyclobenzaprine HCl 10 MG Oral Tablet (Flexeril); Take 1 Tablet by mouth at bedtime as needed forMuscle spasms. - Discussion with patient of risk and benefit of medication. also discussion of common side affects. patient counseled and is aware and wishes to purse this medication, agrees to call with any issues or concerns. Aware of risk of sedation and not to be a daily med. Use with heat. - Gabapentin 100 MG Oral Capsule (Neurontin); TAKE TWO TO THREE CAPSULES BY MOUTH AT BEDTIME NEEDED FOR BACK PAIN Screening for prostate cancer - PSA; Future; Expected date: 05/04/2024 Vitamin D deficiency - 25-HYDROXY VITAMIN D; Future; Expected date: 05/04/2024 Narrowing of lumbar intervertebral disc space - Gabapentin 100 MG Oral Capsule (Neurontin); TAKE TWO TO THREE CAPSULES BY MOUTH AT BEDTIME NEEDED FOR BACK PAIN Follow Up: Return in about 6 months (around 06/05/2024) for labs may, return june. | For: labs may, return june Wrap-Up Labs current Refill meds Prn muscle relaxant trial Time: I spent a total of 30-39 minutes (exact time 37 mins) on the date of service in preparation, delivery, and documentation of the care provided to Clive Shen excluding any time spent in the performance of separately billed services. Vani Raya PA-C 12/06/2023 11:57 AM documented in this encounter Nursing Notes * Joann Hoover LPN - 12/06/2023 11:45 AM EDT Clive Shen is a 68 year old male who presents today for Chief Complaint Patient presents with Follow Up Pt states that he is here for a 6 month return documented in this encounter Plan of Treatment Upcoming Encounters Date Type Department Care Team (Late st Contact Info) Description 06/07/2024 12:00 PM EDT [facility] [address] [facility] [phone] Vani [facility]C [address] [facility] [id number] 11/11/2024 1:00 PM EDT Nurse Only Ancillary Department, [place] [address] [place] [address] Carolyn, Nurse Annual Wellness [address] [place] [address] Scheduled Orders Name Type Priority Associated Diagnoses Orde r Schedule PSA Lab Routine Screening for prostate cancer Expected: 05/04/2024 (Approximate), Expires: 12/05/2024 LDL CHOLESTEROL (DIRECT MEASURE) Lab Routine HTN, goal below 140/90 Expected: 05/04/2024 (Approximate), Expires: 12/05/2024 COMPREHENSIVE METABOLIC PANEL Lab Routine HTN, goal below 140/90 Prediabetes Expected: 05/04/2024 (Approximate), Expires: 12/05/2024 ALBUMIN / CREATININE RATIO, URINE Lab Routine HTN, goal below 140/90 Expected: 05/04/2024 (Approximate), Expires: 12/05/2024 HEMOGLOBIN A1C Lab Routine Prediabetes Expected: 05/04/2024 (Approximate), Expires: 12/05/2024 25-HYDROXY VITAMIN D Lab Routine Vitamin D deficiency Expected: 05/04/2024 (Approximate), Expires: 12/05/2024 Health Maintenance Due Date Last Done Comments Cologuard 11/04/2000 Fecal Occult Blood Test 11/04/2000 Sigmoidoscopy 11/04/2000 *BASELINE EKG FOR HTN 06/13/2021 GFR 05/28/2024 05/29/2023, 11/04, 12/06/2021, Additional history exists HbA1c 05/28/2024 05/29/2023, 11/04, 12/06/2021, Additional history exists Adult Wellness Visit 11/07/2024 11/08/2023 Depression Monitoring 11/07/2024 11/08/2023 O2 ASSESSMENT COMPLETED IN PAST YEAR FOR COPD 11/20/2024 11/21/2023 Colonoscopy 04/27/2025 04/27/2015 Colorectal Cancer Screening 04/27/2025 DTap/Tdap Vaccines (3 - Td or Tdap) 02/23/2026 02/24/2016, 12/25/2015 Albumin/Creatinine Ratio 05/28/2026 05/29/2023, 1005/2021 Lipid Panel 05/28/2028 05/29/2023, 05/05, 12/06/2021, Additional history exists Zoster Vaccines Completed 03/13/2019, 12/05/2018 Alpha-1 Antitrypsin [...] Not on filedocumented as of this encounter Visit Diagnoses Diagnosis Need for prophylactic vaccination and inoculation against influenza- Primary HTN, goal below 140/90 Unspecified essential hypertension Prediabetes Other abnormal glucose Facet arthropathy, lumbar Lumbosacral spondylosis without myelopathy Screening for prostate cancer Special screening for malignant neoplasm of prostate Vitamin D deficiency Unspecified vitamin D deficiency Narrowing of lumbar intervertebral disc space Degeneration of lumbar or lumbosacral intervertebral disc documented in this encounter Care Teams Piston Maker Relationship Specialty Start Date End Date Vani Raya PA-C [address] [facility] [place] [address] PCP - General Physician Crm Technical Lead 03/27/20 documented as of this encounter
--- OUTSIDE RECORDS SUMMARY | 2024-03-12 19:25 | External Medical Summary | Summary of Care ---
Author Name Unknown Organization [facility] Address [address] [place] [address] Phone [phone] Care Team Providers Care Vehicle Fare Collector Name Role Phone Vani Raya PA-C Primary Care Provider [phone] Reason for Visit * Reason Comments Medication Refill Encounter Details Date Type Department Care Team ([facility] st Contact Info) Description 11/20/[address] [facility] [address] [place] [address] Vani Raya PA-C [address] [place] [address] BPH with obstruction/lower urinary tract symptoms; PND (post-nasal drip); Dysfunction of right eustachian tube Allergies No known active allergiesdocumented as of this encounter (statuses as of 11/21/2023) Medications Medication Sig Dispensed Refills Start Date End Date Status Gabapentin 100 MG Oral Capsule (Neurontin)Indicati ons:Narrowing of lumbar intervertebral disc space,Facet arthropathy, lumbar TAKE TWO TO THREE CAPSULES BY MOUTH AT BEDTIME NEEDED FOR BACK PAIN 270 Capsule 1 12/12/2022 4 Active Tamsulosin HCl 0.4 MG Oral Capsule (Flomax) TAKE ONE CAPSULE BY MOUTH EVERY MORNING 90 Capsule 1 12/12/2022 4 Active Lisinopril 10 MG Oral Tablet (Prinivil)Indicatio ns:HTN, goal below 140/90 TAKE ONE TABLET BY MOUTH EVERY MORNING 90 Tablet 1 12/12/2022 4 Active Aspirin 81 MG Oral Tablet Delayed [...] COPD, group B, by GOLD 2017 classification ([facility]) INHALE ONE PUFF BY MOUTH TWICE A [...] drip),Dysfunction of right eustachian tube Administer 1 [place] into nostril in the morning and 1 [place] before bedtime. 90 mL 1 11/21/2023 Active Finasteride 5 MG Oral Tablet (Proscar)Indication s:BPH with obstruction/lower urinary tract symptoms Take 1 Tablet by mouth in the morning. 90 Tablet 1 06/01/2023 4 Discontinu ed(Refill) Azelastine HCl 0.1 % Nasal Solution (Astelin)Indication s:PND (post-nasal drip),Dysfunction of right eustachian tube Administer 1 [place] into nostril in the morning and 1 [place] before bedtime. 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 documented as of this encounter (statuses as of 11/21/2023) Resolved Problems Problem Noted Date Diagnosed Date Resolved Date Current moderate episode of major depressive disorder without prior episode 12/13/2021 2 Overview: DUPLPICATE documented as of this encounter (statuses as of 11/21/2023) Immunizations Name Administration Dates Next Due COVID-19 mRNA, LNP-s, No Pre serve, 2-Dose Series (Moderna) 08/25/2020,07/28/2020 COVID-19, mRNA, LNP-s, PF, B ooster, 100mcg/0.5mg (Moderna) 07/26/2021 Covid-19, Mrna, Lnp-s, Pf, B ivalent, 30 Mcg, IM, 12 yrs and above (Pfizer) 12/14/2021 Pneumococcal Conjugate Vaccine, 20-valent (Prevn ar20) 07/18/2022 Seasonal Influenza, PF, 6 M & above, [...] on file documented as of this encounter Miscellaneous Notes * Telephone Encounter - Wei Carvajal [facility] - 11/21/2023 9:24 AM EDTSigned Prescriptions: Disp Refills Finasteride 5 MG Oral Tablet (Proscar) 90 Tab*1 Sig: Take 1 Tablet by mouth in the morning. Authorizing Provider: VANI RAYA Ordering User: WEI CARVAJAL Azelastine HCl 0.1 % Nasal Solution (Astel*90 mL 1 Sig: Administer 1 [place] into nostril in the morning and 1 [place] before bedtime. Authorizing Provider: VANI RAYA Ordering User: WEI CARVAJAL * Telephone Encounter - Transfer User, Rx Adt - 11/20/2023 12:11 AM EDTPending Prescriptions: Disp Refills Finasteride 5 MG Oral Tablet (Proscar) 90 Tab*1 Sig: Take 1 Tablet by mouth in the morning. Azelastine HCl 0.1 % Nasal Solution (Astel*90 mL 1 Sig: Administer 1 [place] into nostril in the morning and 1 [place] before bedtime. documented in this encounter Plan of Treatment Upcoming Encounters Date Type Department Care Team (Late st Contact Info) Description 11/21/2023 1:00 PM EDT [facility] [place] [address] [facility] [phone] Constantino Cano [facility] [address] [facility] [address] 12/06/2023 11:40 AM EDT [facility] [place] [address] [facility] [phone] Vani Raya PA-C [address] [place] [facility] [place] [address] 11/11/2024 1:00 PM EDT Nurse Only Ancillary Department, [place] [address] [facility] [address] [place], Nurse Annual [facility] [address] [place] [address] Health Maintenance Due Date Last Done Comments Cologuard 11/04/2000 Fecal Occult Blood Test 11/04/2000 Sigmoidoscopy 11/04/2000 *BASELINE EKG FOR HTN 06/13/2021 COVID-19 Vaccine ( season) 2023 12/14/2021, 07/26/2021, 08/25/2020, Additional history exists Influenza Vaccine (FLU shot) (#1) 2023 12/23/2022, 12/13/2021, 12/11/2019, Additional history exists GFR 05/28/2024 05/29/2023, 11/04, 12/06/2021, Additional history exists HbA1c 05/28/2024 05/29/2023, 11/04, 12/06/2021, Additional history exists Adult Wellness Visit 11/07/2024 11/08/2023 Depression Monitoring 11/07/2024 11/08/2023 O2 ASSESSMENT COMPLETED IN PAST YEAR FOR COPD 11/07/2024 11/08/2023 Colonoscopy 04/27/2025 04/27/2015 Colorectal Cancer Screening 04/27/2025 DTap/Tdap Vaccines (3 - Td or Tdap) 02/23/2026 02/24/2016, 12/25/2015 Albumin/Creatinine Ratio 05/28/2026 05/29/2023, 1005/2021 Lipid Panel 05/28/2028 05/29/2023, 05/05, 12/06/2021, Additional history exists Zoster Vaccines Completed 03/13/2019, 12/05/2018 Alpha-1 Antitrypsin Completed 07/14/2021 Pneumococcal Vaccine: 65+ Years Completed 07/18/2022 AAA Screening Completed 12/08/2022 HPV (Gardasil) Vaccine Aged Out No lo [...] as of this encounter Visit Diagnoses Diagnosis BPH with obstruction/lower urinary tract symptoms Hypertrophy of prostate with urinary obstruction and other lower urinary tract symptoms (LUTS) PND (post-nasal drip) Postnasal drip Dysfunction of right eustachian tube Dysfunction of Eustachian tube documented in this encounter Care Teams Vehicle Fare Collector Relationship Specialty Start Date End Date Vani Raya PA-C [address] [facility] [place] [id number] PCP - General Physician Cert Occupational Therapy Asst 1/22/21 documented as of this encounter
--- OUTSIDE RECORDS SUMMARY | 2024-03-12 19:25 | External Medical Summary | Summary of Care ---
Author Name Unknown Organization [facility] Address [address] [place] [address] Phone [phone] Care Team Providers Care Carbon Sequestration Plant Operator Name Role Phone Vani Raya PA-C Primary Care Provider [phone] Reason for Visit * Reason Comments Acute Pt here to have sutu res removed from right hand. Encounter Details Date Type Department Care Team ([facility] st Contact Info) Description 11/21/2023 1:00 PM EDT Office Visit [facility] [address] [place] [phone] Constantino Cano MD [address] [place] [address] Encounter for removal of sutures*; Laceration of right thumb without foreign body without damage to nail, initial encounter Allergies No known active allergiesdocumented as of this encounter (statuses as of 11/21/2023) Medications Medication Sig Dispensed Refills Start Date End Date Status Aspirin 81 MG Oral Tablet Delayed ReleaseIndications:M ixed dyslipidemia TAKE ONE TABLET BY MOUTH IN THE MORNING 90 Tablet 3 12/13/2021 Active Gabapentin 100 MG Oral Capsule (Neurontin)Indicatio ns:Narrowing of lumbar intervertebral disc space,Facet arthropathy, lumbar TAKE TWO TO THREE CAPSULES BY MOUTH AT BEDTIME NEEDED FOR BACK PAIN 270 Capsule 1 12/12/2022 4 Active Tamsulosin HCl 0.4 MG Oral Capsule (Flomax) TAKE ONE CAPSULE BY MOUTH EVERY MORNING 90 Capsule 1 12/12/2022 4 Active Lisinopril 10 MG Oral Tablet (Prinivil)Indication s:HTN, goal below 140/90 TAKE ONE TABLET BY [...] Active Rosuvastatin Calcium 20 MG Oral Tablet (Crestor)Indications :HTN, goal below 140/90,Mixed dyslipidemia Take 1 Tablet by mouth in the morning. 90 Tablet 3 06/01/2023 Active Budeson-Glycopyrrol- Formoterol 160-9-4.8 MCG/ACT Inhalation AerosolIndications:C OPD, group B, by GOLD 2017 classification ([facility]) INHALE ONE PUFF BY MOUTH TWICE A DAY IN THE MORNING AND IN THE EVENING 32.1 g 3 09/01/2023 Active Montelukast Sodium 10 MG Oral Tablet (Singulair)Indicatio ns:Cough,Nasal congestion TAKE ONE TABLET BY MOUTH EVERY DAY AT BEDTIME 90 Tablet 3 09/01/2023 Active Finasteride 5 MG Oral Tablet (Proscar)Indications :BPH with obstruction/lower urinary tract symptoms Take 1 Tablet by mouth in the morning. 90 Tablet 1 11/21/2023 Active Azelastine HCl 0.1 % Nasal Solution (Astelin)Indications :PND (post-nasal drip),Dysfunction of right eustachian tube Administer 1 Bradshaw into nostril in the morning and 1 Bradshaw before bedtime. 90 mL 1 11/21/2023 Active documented as of this encounter (statuses [...] BMI) 11/07/2018 Legally blind 11/07/2018 Overview: Uses [facility] for transportation Screening for prostate cancer 11/07/2018 History of brain surgery 11/07/2018 Overview: 02/18/63--grade 2 astrocytoma of cerebellum documented as of this encounter (statuses as of 11/21/2023) Resolved Problems Problem Noted Date Diagnosed Date Resolved Date Current moderate episode of major depressive disorder without prior episode 12/13/2021 Overview: DUPLPICATE documented as of this encounter [...] Sign Reading Time Taken Comments Blood Pressure 130/82 11/21/2023 12:51 PM EDT Pulse 73 11/21/2023 12:51 PM EDT Temperature 36.6 C (97.8 F) 11/21/2023 12:51 PM E DT Respiratory Rate 18 11/21/2023 12:51 PM EDT Oxygen Saturation 98% 11/21/2023 12:51 PM EDT Inhaled Oxygen Concentration - - Weight 87.2 kg (192 lb 4.8 oz) 11/21/2023 12:51 PM EDT Height - - Body Mass Index 32 11/08/2023 12:53 PM EDT documented in this encounter Progress Notes * Constantino Cano MD - 11/21/2023 1:16 PM EDT Subjective Clive Shen is a 68 year old male. Chief Complaint Patient presents with Acute Pt here to have sutures removed from right hand. HPI: Here for rt thumb base laceration wound check and suture removal Visited ER on nov 08 No major damage from laceration , Tdap , up to date Sutures #8 - all removed today Wound well healed Advised to keep brace bar to avoid full ROM yet Keep at least 1-2 more wks Applying neomycin ointment PMH: Patient Active Problem List Diagnosis Mixed dyslipidemia HTN, goal below 140/90 Gastroesophageal reflux disease without esophagitis BPH with obstruction/lower urinary tract symptoms Sensorineural hearing loss (SNHL) of both ears History of colonoscopy History of tobacco use Obesity, Class I, BMI 30.0-34.9 (see actual BMI) Legally blind Screening for prostate cancer History of brain surgery History of positive PPD Prediabetes COPD, group B, by GOLD 2017 classification ([facility]) Current moderate episode of major depressive disorder without prior episode ([facility]) Current Outpatient Medications Medication Sig Dispense Refill Gabapentin 100 MG Oral Capsule (Neurontin) TAKE TWO TO THREE CAPSULES BY MOUTH AT BEDTIME NEEDEDFOR BACK PAIN 270 Capsule 1 Tamsulosin HCl 0.4 MG Oral Capsule (Flomax) TAKE ONE CAPSULE BY MOUTH EVERY MORNING 90 Capsule 1 Lisinopril 10 MG Oral Tablet (Prinivil) TAKE ONE TABLET BY MOUTH EVERY MORNING 90 Tablet 1 Aspirin 81 MG Oral Tablet Delayed Release Take 1 Tablet by mouth in the morning. Albuterol Sulfate HFA 108 (90 Base) MCG/ACT Inhalation Aerosol Solution INHALE 2 PUFFS BY MOUTH EVERY 4 HOURS NEEDED FOR COUGH, WHEEZE OR SHORTNESS OF BREATH. 72 g 2 Rosuvastatin Calcium 20 MG Oral Tablet (Crestor) Take 1 Tablet by mouth in the morning. 90 Tablet 3 Yjmzbhw-Gzwrpgwqygc-Higxppqtjo 160-9-4.8 MCG/ACT Inhalation Aerosol INHALE ONE PUFF BY MOUTH TWICE A DAY IN THE MORNING AND IN THE EVENING 32.1 g 3 Montelukast Sodium 10 MG Oral Tablet (Singulair) TAKE ONE TABLET BY MOUTH EVERY DAY AT BEDTIME 90 Tablet 3 Finasteride 5 MG Oral Tablet (Proscar) Take 1 Tablet by mouth in the morning. 90 Tablet 1 Azelastine HCl 0.1 % Nasal Solution (Astelin) Administer 1 Bradshaw into nostril in the morning and 1 Bradshaw before bedtime. 90 mL 1 Aspirin 81 MG Oral Tablet Delayed Release TAKE ONE TABLET BY MOUTH IN THE MORNING 90 Tablet 3 No current facility-administered medications for this visit. Past Medical History: Diagnosis Date COPD (chronic obstructive pulmonary disease) ([facility]) Sleep apnea, obstructive Past Surgical History: Procedure Laterality Date CARPAL TUNNEL SURGERY Right 1979 EXCISE CRANIAL LESION, EXTRADURAL age 7-?brain tumor removal LAPAROSCOPY; REPAIR INITIAL INGUINAL HERNIA Bilateral REMOVAL OF APPENDIX REMOVE TONSILS & ADENOIDS, UNDER 12 Review of patient's allergies indicates: No Known Allergies Family History Problem Relation Name Age of Onset Heart Disorder Mother Diabetes Mother Lung Disorder Mother Other (back issues) Sister Sanaz No Known Problems Brother barbara No Known Problems Brother nunu No Known Problems Sister neema No Known Problems Sister alber No Known Problems Sister brody Heart disease Sister rashi pacemaker Diabetes Sister nanette Family Status Relation Status Mo Fa Sis Alive Bro Alive Bro Alive Sis Alive Sis Alive Sis Alive Sis Alive Sis Alive Social History Socioeconomic History Marital status: Spouse name: Not on file Number of children: Not on file Years of education: Not on file Highest education level: Not on file Occupational History Not on file Tobacco Use Smoking status: Former Current packs/day: 0.00 Average packs/day: 2.8 packs/day for 36.0 years (99.0 ttl pk-yrs) Types: Cigarettes, Pipe, Cigars Start date: 02/07/1960 Quit date: 02/07/1996 Years since quittin.8 Passive exposure: Past Smokeless tobacco: Never Vaping Use Vaping status: Never Used Substance and Sexual Activity Alcohol use: Not Currently Comment: drank heavily in past, none since 05/08/1994 Drug use: Yes Frequency: 4.0 times per week Types: Marijuana Comment: quit in 1984; now uses "medical marijuana" Sexual activity: Not on file Other Topics Concern Not on file Social History Narrative 1 cat No mold Social Determinants of Health Financial Resource Strain: Low Risk (05/10/2023) Financial Resource Strain Do you have any trouble paying for your medications, or do you think you might in the future? (Adult - for ages 18 years and over): No Does your family have trouble paying for medicine? (Household - for ages 0-17 years): Not on file Food Insecurity: No Food Insecurity (05/10/2023) Food Insecurity Do you need food for this week? (Adult - for ages 18 years and over): No Are you able to get enough food for your family? (Household - for ages 0-17 years): Not on file Does your family need food this week? (Household - for ages 0-17 years): Not on file Do you always have enough food for your family? (Household - for ages 0-17 years): Not on file Transportation Needs: No Transportation Needs (05/10/2023) Transportation Needs Do you have trouble getting a ride to medical visits or work? (Adult - for ages 18 years and over):Never True Does your family have a hard time getting a ride to doctors visits? (Household - for ages 0-17 years): Not on file Has lack of transportation kept you from medical appointments, meetings, work, or from getting things needed for daily living? Check all that apply. (Adult - for ages 18 years and over): Not on file Do you (or your family) have trouble finding or paying for a ride (transportation)? (Household - for ages 0-17 years): Not on file Social Connections: Socially Integrated (05/10/2023) Social Connections How often do you feel lonely or isolated from those around you? (Adult - for ages 18 years and over): Never Housing Stability: Low Risk (05/10/2023) Housing Stability Do you currently live in a intermediate or have no steady place to sleep at night? (Adult - for ages 18 years and over): No Do you think you are at risk of becoming homeless? (Adult - for ages 18 years and over): No Does your family worry about paying for your home or becoming homeless? (Household - for ages 0-17 years): Not on file Are you homeless or worried that you might be in the future? (Adult - for ages 18 years and over): Not on file Are you (or your family) homeless or worried that you might be in the future? (Household - for ages0-17 years): Not on file Review of Systems Constitutional: Negative for activity change, appetite change, chills, diaphoresis, fatigue, fever and unexpected weight change. Musculoskeletal: Positive for joint swelling. Skin: Positive for color change and wound (healed , mild swelling, redness around it). Hematological: Does not bruise/bleed easily. Psychiatric/Behavioral: Negative for agitation and behavioral problems. Objective BP 130/82 | Pulse 73 | Temp 36.6 C (97.8 F) (Tympanic) | Resp 18 | Wt 87.2 kg (192 lb 4.8 oz) |SpO2 98% | BMI 32.00 kg/m | BSA 2 m Physical Exam Constitutional: Appearance: Normal appearance. HENT: Head: Normocephalic and atraumatic. Nose: Nose normal. Eyes: Extraocular Movements: Extraocular movements intact. Musculoskeletal: General: Swelling, tenderness (mildrt tumb base) and signs of injury present. Skin: Findings: Erythema (very minimal) and lesion present. Neurological: Mental Status: He is alert and oriented to person, place, and time. Psychiatric: Behavior: Behavior normal. ASSESSMENT/PLAN: Encounter for removal of sutures (Primary) Laceration of right thumb without foreign body without damage to nail, initial encounter #8 sutures were removed today Gave instructions Constantino Cano MD documented in this encounter Nursing Notes * Mariposa Mansfield LPN - 11/21/2023 12:49 PM EDT Chief Complaint Patient presents with Acute Pt here to have sutures removed from right hand. documented in this encounter Plan of Treatment Upcoming Encounters Date Type Department Care Team (Late st Contact Info) Description 12/06/2023 11:40 AM EDT Office Visit [facility] [place] [address] [place] [phone] Vani Raya PA-C [address] [facility] [place] [address] 11/11/2024 1:00 PM EDT Nurse Only Ancillary Department, [place] [address] [place] [address] [place], Nurse Annual [facility]ness [address] [place] [address] Health Maintenance Due Date Last Done Comments [...] 02/23/2026 02/24/2016, 12/25/2015 Albumin/Creatinine Ratio 05/28/2026 05/29/2023, 10/0 05/2021 Lipid Panel 05/28/2028 05/29/2023, 05/05, 12/06/2021, Additional [...] as of this encounter Visit Diagnoses Diagnosis Encounter for removal of sutures- Primary Laceration of right thumb without foreign body without damage to nail, initial encounter documented in this encounter Care Teams Carbon Sequestration Plant Operator Relationship Specialty Start Date End Date Vani Raya PA-C [address] [facility] [place] [address] PCP - General Physician Biochemical Engineer 03/27/20 documented as of this encounter
[2024-03-12] MEDS: ENOXAPARIN INJ 40 MG/0.4 ML SYR SQ SCH (21:49)
[2024-03-13 06:56] LABS: Basophils # (auto) 0.04 K/uL (0.00-0.20); Basophils % (auto) 0.5 %; Eosinophils # (auto) 0.04 K/uL (0.00-0.50); Eosinophils % (auto) 0.5 %; Hematocrit (blood only) 44.7 % (42.0-52.0); Hemoglobin 15.4 g/dl (14.0-18.0); Immature Granulocytes # (auto) 0.02 K/uL (0.01-0.20); Immature Granulocytes % (auto) 0.3 %; Lymphocytes % (auto) 27.9 %; Mean Corpuscular Hemoglobin 30.8 pg (25.0-34.0); Mean Corpuscular Hgb Conc 34.5 g/dL (32.0-36.0); Mean Corpuscular Volume 89.4 fL (80.0-100.0); Mean Platelet Volume 9.5 fL (9.4-12.4); Monocytes # (auto) 0.88 K/uL (0.11-0.59); Monocytes % (auto) 11.2 %; Neutrophils # (auto) 4.71 K/uL (1.40-6.50); Neutrophils % (auto) 59.6 %; Platelet Count 253 K/uL (130-400); White Blood Count 7.89 K/ul (4.8-10.8)
[2024-03-13 07:27] LABS: BUN Creatinine Ratio 19.1 (10-20); Calcium 8.7 mg/dl (8.6-10.3); Creatinine Clr Calc Pharmacy 78.1 ml/min; Potassium 3.7 mmol/L (3.5-5.1)
[2024-03-13] MEDS: FINASTERIDE 5 MG TAB PO SCH (07:51)
[2024-03-13] MEDS: ATORVASTATIN 40 MG TAB PO SCH (07:51)
[2024-03-13] MEDS: ASPIRIN 81 MG ECTAB PO SCH (07:52)
[2024-03-13] MEDS: MONTELUKAST SODIUM 10 MG TABLET PO SCH (07:52)
[2024-03-13] MEDS: TAMSULOSIN HCL 0.4 MG CAP PO SCH (07:52)
[2024-03-13] MEDS: FLUTICASONE FUROATE 200MCG 14 PUFFS/INHALER INH SCH (07:53)
[2024-03-13] MEDS: UMECLIDINIUM/VILANTEROL 62.5/25MCG 7 PUFFS/INHALER INH SCH (07:54)
--- NOTE | 2024-03-13 08:46 | Magnetic Resonance Report ---
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 Patient reports that he woke up this morning around 2AM and felt quite unsteady on his feet as both of his lower extremities felt weak. He was able to get out of the house later this morning to go help with turning on the lights at [facility] in [place]. However, he suddenly collapsed to the ground whilst doing so as his knees fully "gave out." This is what prompted the call to EMS. He did not pass out or hit his head when this occurred. He does feel as if his speech is "off" and he is endorsing some numbness/tingling in his right wrist/hand regions which both started around 2AM as well. Stopped smoking in 1995 TECHNIQUE: MRI of the brain was performed without contrast with multiplanar sequences obtained. COMPARISON: none FINDINGS: Brain Parenchyma: Multiple foci of diffusion restriction were noted at both cerebellar hemispheres as well as the right middle cerebellar vermis and a small focus was noted at the posterior right medulla oblongata suggesting acute ischemic indarction. Cystic area of encephalomalacia noted at both cerebellar hemispheres with surrounding gliosis suggesting sequelae of old vascular event. Prominent fourth ventricle likely sequelae of postoperative changes Periventricular high FLAIR signal with multiple foci of high T2 and FLAIR signal suggesting chronic microvascular ischemic changes Right basal ganglion lesion tiny old lacunar infarcts or widened perivascular spaces Ventricles and Sulci: Prominent ventricular system with prominent extra-axial CSF spaces suggesting senile changes Normal size and configuration of the lateral ventricles, third ventricle, and fourth ventricle. No evidence of hydrocephalus or ventriculomegaly. Sylvian fissures, sulci, and cisterns are within normal limits. Posterior Fossa: The cerebellum and brainstem appear normal without evidence of mass lesions or signal abnormalities. Cranial Nerves: Normal course and appearance of cranial nerves identified. Vessels: No evidence of vascular malformations or aneurysms. Intracranial arteries and veins appear normal without evidence of stenosis or occlusion. Orbits and Skull Base: Orbits and skull base structures are normal without evidence of abnormalities. IMPRESSION: 1. Multiple foci of diffusion restriction were noted at both cerebellar hemispheres as well as the right middle cerebellar vermis and a small focus was noted at the posterior right medulla oblongata suggesting acute ischemic insult. 2. Encephalomalacia was noted at both cerebellar hemispheres with surrounding gliosis suggesting sequelae of old vascular event. 3. Prominent fourth ventricle likely sequelae of postoperative changes. 4. Chronic microvascular ischemic changes with senile changes. 5. The right basal ganglion fluid signal intensity area could be a tiny old lacunar infarct or widened perivascular space. [facility] was called on at 7:41 AM SAMPLES AND REPAIRS PREPARER, 03/13/2024, and Mindy (Filler Leaf Cutter Long) was informed about the presence of Critical Medical Findings. She will inform the provider. Electronically signed by Radha Mejia 03-13-2024 08:46 AM
--- NOTE | 2024-03-13 13:18 | Neurology Consultation ---
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 Noted area of encephalomalacia following tumor resection as a child Recommend keep HOB elevated Continue frequent neurological assessments Obtain stat CT brain without contrast for any acute neurological decline Plan for repeat CT brain without contrast in AM tomorrow to eval for any further cytotoxic edema Recommend continued stroke work up to include the following: Echocardiogram as part of complete stroke workup Continue to monitor/control blood pressure & blood glucose Continue to monitor telemetry closely Recommend ZioPatch at DC if no evidence of arrhythmia during inpatient monitoring Continue to monitor renal and hepatic function, keep euvolemic Metabolic workup should include hgbA1c, fasting lipids Recommend DAPT for at least 3 weeks Recommend high dose statin therapy indefinitely if tolerated Ok from neurology perspective for VTE prophylaxis PT/OT/SLT to eval and treat Recommend provide continuous positive airway pressure mask at times of sleep Plan for continued follow outpatient Neurology Telehealth Consultation Telehealth Information Telehealth Information: I performed this visit using a real-time telehealth connection between my location and the patients location ([facility]). After connecting through interactive tele-video, patient was identified by name and date of and/or wristband check.Patient (or authorized healthcare airport representative) was informed that this was a telemedicine visit and it was being conducted confidentially over secure lines. My office door was closed and no one else was present in the room with me.Patient (or authorized healthcare airport representative) provided consent to proceed with the visit, expressed an understanding of privacy and security of the telemedicine visit, and gave permission to have a hospital airport representative in the room in order to assist with the visit and to conduct portions of the visit, as needed. I informed the patient (or authorized healthcare airport representative) that I reviewed their record and presented the opportunity for them to ask any questions regarding the visit today. The patient agreed to participate. History of Present Illness Reason for Consultation: Stroke like symptoms Requesting Physician: Dr. Velez Attending Physician: Trisha Velez MD History of Present Illness 68yo male presented yesterday with concern of stroke like symptoms. Reportedly awoke from sleep and felt off while trying to ambulate then later collapsed. He reports paresthesia in right hand and foot. He has undergone emergent stroke imaging including CT brain without contrast, personally reviewed, revealing no overt evidence of hemorrhage. CT angiographic studies of head and neck, also personally reviewed, reveal no overt evidence of large vessel occlusion or significant/flow limiting stenosis. There is noted atherosclerotic disease both intracranial and extracranial most significant in bilateral vertebral arteries. He has undergone MRI brain revealing evidence of restricted diffusion with bilateral cerebellum and right medulla. Allergies Allergy/AdvReac Type Severity Reaction Status Date / Time No Known Drug Allergies Allergy Unknown . Verified 11/30/19 09:38 Home Medications Medication Instructions Recorded Confirmed Type albuterol sulfate 90 mcg/actuation 2 puffs inhalation .COMPLEX PRN 11/22/18 03/12/24 Rx aerosol inhaler (Ventolin HFA) shortness of breath or wheezing #18 grams aspirin 81 mg tablet,delayed 81 mg PO DAILY #30 tabs 12/06/18 03/12/24 Rx release lisinopril 10 mg tablet 10 mg PO DAILY 02/06/19 03/12/24 History tamsulosin 0.4 mg capsule 0.4 mg PO DAILY #30 caps 08/09/19 03/12/24 Rx finasteride 5 mg tablet 5 mg PO DAILY #90 tabs 09/20/19 03/12/24 Rx cyclobenzaprine 10 mg tablet 10 mg PO TID PRN muscle spasm #20 11/30/19 03/12/24 Rx tabs budesonide 160 mcg-glycopyr 9 1 inh inhalation BID 03/12/24 03/12/24 History mcg-formot 4.8 mcg/actuation HFA inhaler (Breztri Aerosphere) gabapentin 100 mg capsule 300 mg PO HS PRN Pain 03/12/24 03/12/24 History montelukast 10 mg tablet 10 mg PO DAILY 03/12/24 03/12/24 History rosuvastatin 20 mg tablet 20 mg PO DAILY 03/12/24 03/12/24 History Patient History Medical History Generalized weakness Erectile dysfunction Surgical History History of hernia repair History of appendectomy Social History Smoking Status: Former smoker Tobacco Type: Cigarettes Second Hand Exposure: No; Do You Dip or Chew Tobacco: No; Hx Alcohol Use: Yes Alcohol type: beer Hx Substance Use: Yes (Patient has medical card) Preferred Language: [place] Communication Ability: Effective Beliefs That Will Affect Care: None Current Living Situation: Alone Current Living Situation Comment: Lives Alone in Apartment, son and daughter live 6 miles away Feels Safe at Home: Yes Assistive Devices: Cane and Glasses Physical Exam Neurological Examination: Mental Status: Awake and alert. Oriented to person, place, and time. Fluency naming repetition and comprehension appear grossly intact. Affect remains appropriate. CN testing: I: Denies changes in ability to smell II:Reports chronic poor vision/no noticeable acute changes III/IV/: No evidence of gaze preference, hippus, nystagmus or roving eye movements V: Facial sensation reportedly grossly intact to light touch bilaterally VII: Facial movements appear without evidence of asymmetry VIII: Hearing appears grossly intact to loud voice bilaterally IX/X: Palate is difficult to accurately visualize XI: Shoulder shrug appears symmetric/ grossly intact bilaterally XII: Tongue protrudes midline without evidence of biting Motor exam: Strength appears grossly intact/symmetric in all extremities Sensory: Sensation is reportedly grossly intact throughout Coordination: There is evidence of dysmetria and dysdiadochokinesia in BUE Difficult to accurately assess coordination in BLE Reflexes: Deferred Gait: Deferred Results & Data Vital Signs (Past 12 Hours) Vital Signs Temp Pulse Pulse Resp BP BP Pulse Ox 03/13/24 11:39 36.7 C 90 18 124/81 96 03/13/24 10:52 78 03/13/24 07:42 36.4 C L 85 18 129/87 95 03/13/24 02:56 36.6 C 78 18 129/81 97 O2 Del Method 03/13/24 11:39 Room Air 03/13/24 10:52 03/13/24 07:42 Room Air 03/13/24 02:56 Room Air Laboratory Results Abnormal lab results 03/12/24 03/12/24 03/13/24 Range/Units 11:34 16:56 06:18 [place] # (Auto) 0.88 H (0.11-0.59) K/uL Triglycerides 168 H (0-150) mg/dl Cholesterol 227 H (0-200) mg/dl VLDL Cholesterol, Calc 34 H (0-30) mg/dl Ur Specific [place] > 1.045 H (1.000-1.030) Urine Protein Trace H (Negative) Hyaline Casts Present A (None Presnt) /lpf Diagnostic Findings Brain MRI 03/12/24 14:38 EXAM: MR brain wo con CLINICAL HISTORY: Clive Shen Jr is a 68-year-old male with past medical history significant for HLD, HTN, prediabetes, COPD, GERD without esophagitis, BPH with LUTS, SNHL of both ears [wears hearing aids at baseline], PORSCHE [CPAP noncompliant], 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 Patient reports that he woke up this morning around 2AM and felt quite unsteady on his feet as both of his lower extremities felt weak. He was able to get out of the house later this morning to go help with turning on the lights at [facility] in [place]. However, he suddenly collapsed to the ground whilst doing so as his knees fully "gave out." This is what prompted the call to EMS. He did not pass out or hit his head when this occurred. He does feel as if his speech is "off" and he is endorsing some numbness/tingling in his right wrist/hand regions which both started around 2AM as well. Stopped smoking in 1995 TECHNIQUE: MRI of the brain was performed without contrast with multiplanar sequences obtained. COMPARISON: none FINDINGS: Brain Parenchyma: Multiple foci of diffusion restriction were noted at both cerebellar hemispheres as well as the right middle cerebellar vermis and a small focus was noted at the posterior right medulla oblongata suggesting acute ischemic indarction. Cystic area of encephalomalacia noted at both cerebellar hemispheres with surrounding gliosis suggesting sequelae of old vascular event. Prominent fourth ventricle likely sequelae of postoperative changes Periventricular high FLAIR signal with multiple foci of high T2 and FLAIR signal suggesting chronic microvascular ischemic changes Right basal ganglion lesion tiny old lacunar infarcts or widened perivascular spaces Ventricles and Sulci: Prominent ventricular system with prominent extra-axial CSF spaces suggesting senile changes Normal size and configuration of the lateral ventricles, third ventricle, and fourth ventricle. No evidence of hydrocephalus or ventriculomegaly. Sylvian fissures, sulci, and cisterns are within normal limits. Posterior Fossa: The cerebellum and brainstem appear normal without evidence of mass lesions or signal abnormalities. Cranial Nerves: Normal course and appearance of cranial nerves identified. Vessels: No evidence of vascular malformations or aneurysms. Intracranial arteries and veins appear normal without evidence of stenosis or occlusion. Orbits and Skull Base: Orbits and skull base structures are normal without evidence of abnormalities. IMPRESSION: 1. Multiple foci of diffusion restriction were noted at both cerebellar hemispheres as well as the right middle cerebellar vermis and a small focus was noted at the posterior right medulla oblongata suggesting acute ischemic insult. 2. Encephalomalacia was noted at both cerebellar hemispheres with surrounding gliosis suggesting sequelae of old vascular event. 3. Prominent fourth ventricle likely sequelae of postoperative changes. 4. Chronic microvascular ischemic changes with senile changes. 5. The right basal ganglion fluid signal intensity area could be a tiny old lacunar infarct or widened perivascular space. [facility] was called on at 7:41 AM MANA[facility], 03/13/2024, and Mindy (Account Support Analyst) was informed about the presence of Critical Medical Findings. She will inform the provider. Electronically signed by Radha Mejia 03-13-2024 08:46 AM Venous Doppler Study 03/12/24 14:46 Clinical History: Rule out DVT Technique: Venous ultrasound evaluation was performed utilizing grayscale, color Doppler and wave form evaluation. Images were also obtained with and without compression Findings: The right common femoral, superficial femoral, popliteal, and visualized calf veins demonstrate normal anechoic lumens with full compressibility. Normal flow is seen on color Doppler images. Expected waveforms were produced with augmentation maneuvers Impression: No evidence of right leg deep venous thrombosis Electronically signed by Vinicius Hilton 03-12-2024 4:29 PM Medications Administered Home Medications Medication Instructions Recorded Confirmed Last Taken albuterol sulfate 90 mcg/actuation 2 puffs inhalation .COMPLEX PRN 11/22/18 03/12/24 11/30/19 aerosol inhaler (Ventolin HFA) shortness of breath or wheezing #18 grams aspirin 81 mg tablet,delayed 81 mg PO DAILY #30 tabs 12/06/18 03/12/24 11/30/19 release lisinopril 10 mg tablet 10 mg PO DAILY 02/06/19 03/12/24 11/30/19 tamsulosin 0.4 mg capsule 0.4 mg PO DAILY #30 caps 08/09/19 03/12/24 11/30/19 finasteride 5 mg tablet 5 mg PO DAILY #90 tabs 09/20/19 03/12/24 11/30/19 cyclobenzaprine 10 mg tablet 10 mg PO TID PRN muscle spasm #20 11/30/19 03/12/24 Unknown tabs budesonide 160 mcg-glycopyr 9 1 inh inhalation BID 03/12/24 03/12/24 Unknown mcg-formot 4.8 mcg/actuation HFA inhaler (Breztri Aerosphere) gabapentin 100 mg capsule 300 mg PO HS PRN Pain 03/12/24 03/12/24 Unknown montelukast 10 mg tablet 10 mg PO DAILY 03/12/24 03/12/24 Unknown rosuvastatin 20 mg tablet 20 mg PO DAILY 03/12/24 03/12/24 Unknown Active Medications Generic Name Dose Route Start Last Admin Trade Name Freq PRN Reason Stop Dose Admin Aspirin 81 mg 03/13/24 09:00 03/13/24 07:52 Aspirin 81 Mg Ectab PO 04/12/24 08:59 81 mg DAILY RADHA Administration Atorvastatin Calcium 80 mg 03/13/24 09:00 03/13/24 07:51 Atorvastatin 40 Mg Tab PO 04/12/24 08:59 80 mg QAM RADHA Administration Enoxaparin Sodium 40 mg 03/12/24 20:00 03/12/24 21:49 Enoxaparin Inj 40 Mg/0.4 Ml Syr SQ 04/11/24 19:59 40 mg Q24H RADHA Administration Finasteride 5 mg 03/13/24 09:00 03/13/24 07:51 Finasteride 5 Mg Tab PO 04/12/24 08:59 5 mg DAILY RADHA Administration Fluticasone Furoate 1 puffs 03/13/24 09:00 03/13/24 07:53 Fluticasone Furoate 200mcg 14 Puffs/Inhaler INH 04/12/24 08:59 1 puffs DAILY RADHA Administration Montelukast Sodium 10 mg 03/13/24 09:00 03/13/24 07:52 Montelukast Sodium 10 Mg Tablet PO 04/12/24 08:59 10 mg DAILY RADHA Administration Tamsulosin HCl 0.4 mg 03/13/24 09:00 03/13/24 07:52 Tamsulosin Hcl 0.4 Mg Cap PO 04/12/24 08:59 0.4 mg DAILY RADHA Administration Umeclidinium/Vilanterol 1 puffs 03/13/24 09:00 03/13/24 07:54 Umeclidinium/Vilanterol 62.5/25mcg 7 Puffs/Inhaler INH 04/12/24 08:59 1 puffs DAILY RADHA Administration
--- NOTE | 2024-03-13 13:51 | Hospitalist Progress Note ---
Date of Service March 13, 2024 Assessment & Plan (1) Acute ischemic multifocal multiple vascular territories stroke: Plan: Patient does not have any underlying atrial fibrillation, will continue to keep him on telemonitoring to see if there is any arrhythmia found, CTA of the head and neck, showed carotid bulb atherosclerosis with no high-grade stenosis, moderate to high-grade stenosis of distal vertebral arteries, and unremarkable CTA of the head. His deficit is on examination limited to right side of facial numbness, on examination by PT, he did poorly to the point that he was unable to keep his balance and he would need acute rehab. Seen by neurology, continue with DAPT, Crestor 40 mg daily, neurology recommended frequent neurological monitoring which I have ordered at every 2 hours, repeat CT of the head tomorrow, if remains stable otherwise without any worsening or deterioration, may consider sending to rehab with plan for Zio patch as outpatient. (2) BPH (benign prostatic hyperplasia): Plan: Continue with home dose of Flomax. Plan Continue frequent neurological monitoring for any change of status, repeat CT of the head tomorrow, if otherwise remains unremarkable, plan is for rehab placement, with plan for Zio patch as outpatient. Admission and Anticipated Discharge Date Admission Date: March 12, 2024 Subjective Patient is a 68-year-old gentleman with prior history of hyperlipidemia, hy pertension, prediabetes BPH PORSCHE who was admitted to the hospital for right-sided numbness and weakness. On my examination he definitely had some decreased sensation over the right side of the face but on motor examination he appeared well, MRI of the brain showed multiple foci of diffusion restriction in both cerebellum and right middle cerebral vermis and a spot over the posterior right medulla oblongata suggestive of acute ischemic stroke. He did have some element of encephalomalacia in both cerebellar hemispheres, Along with some microvascular changes and an area over the right basal ganglia looked likely an old lacunar infarct. EKG did not show any rhythm abnormality, telemetry monitoring also did not show any underlying atrial fibrillation. Echocardiogram showed ejection fraction 60 to 65% and grade 1 diastolic LV dysfunction without any other finding. Patient was seen by neurology, recommended to remain on dual antiplatelets therapy, and we plan to send the patient as outpatient for Zio patch. Patient was seen by PT and acute rehab was recommended. Patient was seen and examined today. Physical Exam Physical Exam: VITALS: Reviewed. WEIGHT/BMI reviewed. GEN: Healthy appearing, well-developed, NAD. NECK: Supple, with no masses. CV: RRR, no m/r/g. LUNGS: CTAB, no w/r/c. ABD: Soft, NT/ND, NBS, no masses or organomegaly. : N/A SKIN: Warm, well perfused. No skin rashes or abnormal lesions. MSK: No deformities, Normal gait. EXT: No clubbing, cyanosis, or edema. NEURO: On my examination patient found to have normal motor strength in upper and lower extremities bilaterally, the only deficit I found was the decreased sensation of the right side of the face Results & Data Results & Data Vital Signs (Past 12 Hours) Vital Signs Temp Pulse Pulse Resp BP BP Pulse Ox 03/13/24 11:39 36.7 C 90 18 124/81 96 03/13/24 10:52 78 03/13/24 07:42 36.4 C L 85 18 129/87 95 03/13/24 02:56 36.6 C 78 18 129/81 97 O2 Del Method 03/13/24 11:39 Room Air 03/13/24 10:52 03/13/24 07:42 Room Air 03/13/24 02:56 Room Air Laboratory Results Laboratory Results - last 24 hr 03/12/24 03/12/24 03/12/24 11:34 15:56 16:56 WBC RBC Hgb Hct MCV MCH MCHC RDW Std Deviation RDW Coeff of Jose M Plt Count MPV Immature Gran % (Auto) Neut % (Auto) Lymph % (Auto) Payne % (Auto) Eos % (Auto) Baso % (Auto) Neut # (Auto) Lymph # (Auto) Payne # (Auto) Eos # (Auto) Baso # (Auto) Immature Gran # (Auto) Sodium Potassium Chloride Carbon Dioxide Anion Gap BUN Creatinine Est Cr Clr Drug Dosing eGFR BUN/Creatinine Ratio Glucose Estimat Average Glucose 111 Hemoglobin A1c 5.5 Calcium Magnesium Triglycerides 168 H Cholesterol 227 H LDL Cholesterol, Calc 148 VLDL Cholesterol, Calc 34 H HDL Cholesterol 45 Cholesterol/HDL Ratio 5.0 Urine Color Yellow Urine Appearance Clear Urine pH 6.0 Ur Specific [place] > 1.045 H Urine Protein Trace H Urine Glucose (UA) Negative Urine Ketones Negative Urine Blood Negative Urine Nitrite Negative Urine Bilirubin Negative Urine Urobilinogen Negative Ur Leukocyte Esterase Negative Urine WBC (Auto) 0-5 Urine RBC (Auto) 0-2 U Hyaline Cast (Auto) 0-2 U Epithel Cells (Auto) 0-2 Urine Bacteria (Auto) None Seen Hyaline Casts Present A Ur Butalbital Confirm Pending Urine Opiates Screen Pending U Codeine Confrm GC/MS Pending Ur Morphine (GC/MS) Pending Ur Hydrocodone (GC/MS) Pending U Norhydrocodone Conf Pending Ur Oxycodone Screen Pending U Noroxycodone Confirm Pending Ur Oxycodone GC/MS Pending U Oxymorphone GC/MS Pending EDDP Confirm Pending Ur Methadone, Qual Pending Ur Methadone Pending Ur Hydromorphone (GC/MS) Pending Urine Barbiturates Pending Ur Phencyclidine Scrn Pending Urine PCP Confirm Pending Ur Amphetamines Screen Pending U Amphetamines Confirm Pending Methamphetamine GC/MS Pending Ur Amobarbital GC/MS Pending U Pentobarbital GC/MS Pending U Phenobarbital GC/MS Pending U Secobarbital GC/MS Pending U [id number] GC/MS Pending U Benzodiazepines Scrn Pending U 7-Aminoclonazepam Screen Pending Ur Nordiazepam GC/MS Pending U OH-ethylfluraz GC/MS Pending U Lorazepam Cnf GC/MS Pending U Oxazepam Confm GC/MS Pending Ur Temazepam Cnf GC/MS Pending U a-Hydroxytriaz GC/MS Pending U e-JE-Nphsyjlaz Pending Urine Cocaine Pending U Cocaine Metab Confirm Pending Tetrahydrocannabinol Pending U Marijuana (THC) Screen Pending Drug Screen Comment Pending RPR Resp to Therapy Pending Reference Lab Pending 03/13/24 06:18 WBC 7.89 RBC 5.00 Hgb 15.4 Hct 44.7 MCV 89.4 MCH 30.8 MCHC 34.5 RDW Std Deviation 45.0 RDW Coeff of Jose M 14.0 Plt Count 253 MPV 9.5 Immature Gran % (Auto) 0.3 Neut % (Auto) 59.6 Lymph % (Auto) 27.9 Payne % (Auto) 11.2 Eos % (Auto) 0.5 Baso % (Auto) 0.5 Neut # (Auto) 4.71 Lymph # (Auto) 2.20 Payne # (Auto) 0.88 H Eos # (Auto) 0.04 Baso # (Auto) 0.04 Immature Gran # (Auto) 0.02 Sodium 137 Potassium 3.7 Chloride 105 Carbon Dioxide 25 Anion Gap 7 BUN 18 Creatinine 0.94 Est Cr Clr Drug Dosing 78.1 eGFR 88.30 BUN/Creatinine Ratio 19.1 Glucose 96 Estimat Average Glucose Hemoglobin A1c Calcium 8.7 Magnesium 2.0 Triglycerides Cholesterol LDL Cholesterol, Calc VLDL Cholesterol, Calc HDL Cholesterol Cholesterol/HDL Ratio Urine Color Urine Appearance Urine pH Ur Specific [place] Urine Protein Urine Glucose (UA) Urine Ketones Urine Blood Urine Nitrite Urine Bilirubin Urine Urobilinogen Ur Leukocyte Esterase Urine WBC (Auto) Urine RBC (Auto) U Hyaline Cast (Auto) U Epithel Cells (Auto) Urine Bacteria (Auto) Hyaline Casts Ur Butalbital Confirm Urine Opiates Screen U Codeine Confrm GC/MS Ur Morphine (GC/MS) Ur Hydrocodone (GC/MS) U Norhydrocodone Conf Ur Oxycodone Screen U Noroxycodone Confirm Ur Oxycodone GC/MS U Oxymorphone GC/MS EDDP Confirm Ur Methadone, Qual Ur Methadone Ur Hydromorphone (GC/MS) Urine Barbiturates Ur Phencyclidine Scrn Urine PCP Confirm Ur Amphetamines Screen U Amphetamines Confirm Methamphetamine GC/MS Ur Amobarbital GC/MS U Pentobarbital GC/MS U Phenobarbital GC/MS U Secobarbital GC/MS U [id number] GC/MS U Benzodiazepines Scrn U 7-Aminoclonazepam Screen Ur Nordiazepam GC/MS U OH-ethylfluraz GC/MS U Lorazepam Cnf GC/MS U Oxazepam Confm GC/MS Ur Temazepam Cnf GC/MS U a-Hydroxytriaz GC/MS U [id number]-[id number] Urine Cocaine U Cocaine Metab Confirm Tetrahydrocannabinol U Marijuana (THC) Screen Drug Screen Comment RPR Resp to Therapy Reference Lab Diagnostic Findings Brain MRI 03/12/24 14:38 EXAM: MR brain wo con CLINICAL HISTORY: Clive Shen Jr is a 68-year-old male with past medical history significant for HLD, HTN, prediabetes, COPD, GERD without esophagitis, BPH with LUTS, SNHL of both ears [wears hearing aids at baseline], PORSCHE [CPAP noncompliant], 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 Patient reports that he woke up this morning around 2AM and felt quite unsteady on his feet as both of his lower extremities felt weak. He was able to get out of the house later this morning to go help with turning on the lights at [facility] in [place]. However, he suddenly collapsed to the ground whilst doing so as his knees fully "gave out." This is what prompted the call to EMS. He did not pass out or hit his head when this occurred. He does feel as if his speech is "off" and he is endorsing some numbness/tingling in his right wrist/hand regions which both started around 2AM as well. Stopped smoking in 1995 TECHNIQUE: MRI of the brain was performed without contrast with multiplanar sequences obtained. COMPARISON: none FINDINGS: Brain Parenchyma: Multiple foci of diffusion restriction were noted at both cerebellar hemispheres as well as the right middle cerebellar vermis and a small focus was noted at the posterior right medulla oblongata suggesting acute ischemic indarction. Cystic area of encephalomalacia noted at both cerebellar hemispheres with surrounding gliosis suggesting sequelae of old vascular event. Prominent fourth ventricle likely sequelae of postoperative changes Periventricular high FLAIR signal with multiple foci of high T2 and FLAIR signal suggesting chronic microvascular ischemic changes Right basal ganglion lesion tiny old lacunar infarcts or widened perivascular spaces Ventricles and Sulci: Prominent ventricular system with prominent extra-axial CSF spaces suggesting senile changes Normal size and configuration of the lateral ventricles, third ventricle, and fourth ventricle. No evidence of hydrocephalus or ventriculomegaly. Sylvian fissures, sulci, and cisterns are within normal limits. Posterior Fossa: The cerebellum and brainstem appear normal without evidence of mass lesions or signal abnormalities. Cranial Nerves: Normal course and appearance of cranial nerves identified. Vessels: No evidence of vascular malformations or aneurysms. Intracranial arteries and veins appear normal without evidence of stenosis or occlusion. Orbits and Skull Base: Orbits and skull base structures are normal without evidence of abnormalities. IMPRESSION: 1. Multiple foci of diffusion restriction were noted at both cerebellar hemispheres as well as the right middle cerebellar vermis and a small focus was noted at the posterior right medulla oblongata suggesting acute ischemic insult. 2. Encephalomalacia was noted at both cerebellar hemispheres with surrounding gliosis suggesting sequelae of old vascular event. 3. Prominent fourth ventricle likely sequelae of postoperative changes. 4. Chronic microvascular ischemic changes with senile changes. 5. The right basal ganglion fluid signal intensity area could be a tiny old lacunar infarct or widened perivascular space. [facility] was called on at 7:41 AM CHILD AND ADOLESCENT PSYCHOLOGIST, 03/13/2024, and Mindy (Brush Trimming Machine Setter) was informed about the presence of Critical Medical Findings. She will inform the provider. Electronically signed by Radha Mejia 03-13-2024 08:46 AM Venous Doppler Study 03/12/24 14:46 Clinical History: Rule out DVT Technique: Venous ultrasound evaluation was performed utilizing grayscale, color Doppler and wave form evaluation. Images were also obtained with and without compression Findings: The right common femoral, superficial femoral, popliteal, and visualized calf veins demonstrate normal anechoic lumens with full compressibility. Normal flow is seen on color Doppler images. Expected waveforms were produced with augmentation maneuvers Impression: No evidence of right leg deep venous thrombosis Electronically signed by Vinicius Hilton 03-12-2024 4:29 PM Medications Administered Current Inpatient Medications Albuterol (Albut/Ipratrop 3mg/0.5mg Neb 3 Ml Vial) 3 ml NEB Q6R PRN; Protocol PRN Reason: Shortness Of Breath Stop: 04/11/24 17:35 Albuterol (Albuterol Hfa 8 Gm Inhaler) 2 puffs INH Q6H PRN PRN Reason: shortness of breath or wheezing Stop: 04/11/24 19:23 Aspirin (Aspirin 81 Mg Ectab) 81 mg PO DAILY [facility] Stop: 04/12/24 08:59 Last Admin: 03/13/24 07:52 Dose: 81 mg Clopidogrel Bisulfate (Clopidogrel Bisulfate 75 Mg Tab) 75 mg PO QAM [facility] Stop: 04/12/24 13:44 Enoxaparin Sodium (Enoxaparin Inj 40 Mg/0.4 Ml Syr) 40 mg SQ Q24H [facility]HA Stop: 04/11/24 19:59 Last Admin: 03/12/24 21:49 Dose: 40 mg Finasteride (Finasteride 5 Mg Tab) 5 mg PO DAILY [facility] Stop: 04/12/24 08:59 Last Admin: 03/13/24 07:51 Dose: 5 mg Fluticasone Furoate (Fluticasone Furoate 200mcg 14 Puffs/Inhaler) 1 puffs INH DAILY [facility] Stop: 04/12/24 08:59 Last Admin: 03/13/24 07:53 Dose: 1 puffs Miscellaneous Information (Pharmacist Discharge Med Rec Consult) 1 each N/A UD PRN PRN Reason: Consult Stop: 04/11/24 14:36 Montelukast Sodium (Montelukast Sodium 10 Mg Tablet) 10 mg PO DAILY [facility] Stop: 04/12/24 08:59 Last Admin: 03/13/24 07:52 Dose: 10 mg Rosuvastatin Calcium (Rosuvastatin Calcium 20 Mg Tab) 40 mg PO QAM [facility] Stop: 04/12/24 13:44 Tamsulosin HCl (Tamsulosin Hcl 0.4 Mg Cap) 0.4 mg PO DAILY [facility] Stop: 04/12/24 08:59 Last Admin: 03/13/24 07:52 Dose: 0.4 mg Umeclidinium/Vilanterol (Umeclidinium/Vilanterol 62.5/25mcg 7 Puffs/Inhaler) 1 puffs INH DAILY [facility] Stop: 04/12/24 08:59 Last Admin: 03/13/24 07:54 Dose: 1 puffs (2) BPH (benign prostatic hyperplasia) Lower urinary tract symptom presence: symptoms absent Qualified Code(s): N40.0 - Benign prostatic hyperplasia without lower urinary tract symptoms
--- NOTE | 2024-03-13 14:11 | Pharmacy Report ---
- Date of Service March 13, 2024 - Pharmacy CVA/TIA Medication Review Medications to Prevent Stroke handout has been added to the patients discharge packet. Antiplatelet(s) * aspirin 81 mg daily * plavix 75 mg daily Cholesterol * High intensity statin: rosuvastatin 40 mg DVT Prophylaxis * Enoxaparin SQ Therapeutic Anticoagulation * No history of Afib/Aflutter noted * zio patch for discharge per notes Type 2 Diabetes * Patient does not have T2DM
[2024-03-13] MEDS: ROSUVASTATIN CALCIUM 20 MG TAB PO SCH (14:50)
[2024-03-13] MEDS: CLOPIDOGREL BISULFATE 75 MG TAB PO SCH (14:51)
[2024-03-13] MEDS: ACETAMINOPHEN 325 MG TAB PO PRN (19:59)
[2024-03-14 06:49] LABS: Basophils # (auto) 0.04 K/uL (0.00-0.20); Basophils % (auto) 0.6 %; Eosinophils # (auto) 0.04 K/uL (0.00-0.50); Eosinophils % (auto) 0.6 %; Hematocrit (blood only) 46.7 % (42.0-52.0); Hemoglobin 16.2 g/dl (14.0-18.0); Immature Granulocytes # (auto) 0.02 K/uL (0.01-0.20); Immature Granulocytes % (auto) 0.3 %; Lymphocytes # (auto) 2.05 K/uL (1.20-3.40); Lymphocytes % (auto) 30.6 %; Mean Corpuscular Hgb Conc 34.7 g/dL (32.0-36.0); Mean Corpuscular Volume 89.3 fL (80.0-100.0); Mean Platelet Volume 9.5 fL (9.4-12.4); Monocytes # (auto) 0.81 K/uL (0.11-0.59); Monocytes % (auto) 12.1 %; Neutrophils # (auto) 3.75 K/uL (1.40-6.50); Neutrophils % (auto) 55.8 %; Platelet Count 269 K/uL (130-400); RDW Coefficient of Variation 13.9 % (11.5-14.5); RDW Standard Deviation 45.2 fL (36.4-46.3); Red Blood Count 5.23 M/uL (4.70-6.10); White Blood Count 6.71 K/ul (4.8-10.8)
[2024-03-14 07:13] LABS: BUN Creatinine Ratio 15.3 (10-20); Calcium 8.9 mg/dl (8.6-10.3); Creatinine Clr Calc Pharmacy 74.8 ml/min
--- NOTE | 2024-03-14 08:25 | CT Scan Report ---
CT head/brain wo con CLINICAL HISTORY: 68 years-old Male with Follow-up stroke. TECHNIQUE: Multiple axial CT images of the head were obtained without contrast. A dose lowering tech nique was utilized adhering to the principles of ALARA. CT DOSE: 547.75 mGy.cm COMPARISON: Head CT and brain MRI exam 03/12/2024. FINDINGS: No acute intracranial hemorrhage, midline shift, intracranial mass, hydrocephalus, or abnormal extra- axial collection. Encephalomalacia within the cerebellum redemonstrated. Involutional changes with mi ld white matter hypodensities redemonstrated suggestive of chronic microvascular ischemic disease. 1. 2 cm ill-defined hypodense focus within the subcortical superior right frontal lobe is unchanged from prior which appears chronic. Acute right-sided cerebellar infarcts seen on MRI are difficult to visu marion by CT. Prior left suboccipital craniectomy. The paranasal sinuses, mastoid air cells, and middl e ear cavities are clear. IMPRESSION: 1. The small acute cerebellar infarcts seen on the recent MRI exam are suboptimally visualized by CT. 2. No acute intracranial hemorrhage, midline shift or acute territorial infarct. 3. Involutional changes with chronic microvascular disease. 4. Prior suboccipital craniectomy with cerebellar encephalomalacia redemonstrated. ACT 112: Negative or not required by law. The above report was generated using voice recognition software. It may contain grammatical, syntax o r spelling errors. Electronically signed by: Barry Little M.D. 03/14/2024 8:24 AM
--- NOTE | 2024-03-14 09:26 | Hospitalist Progress Note ---
Date of Service March 14, 2024 Assessment & Plan (1) Acute ischemic multifocal multiple vascular territories stroke: Plan: Clinically stable, continue with dual antiplatelets and statin, repeat CT of the head showed no new finding, on discharge patient needs to be connected with cardiology for Zio patch as this very suspicious being due to cardio embolization. Awaiting rehab placement. (2) BPH (benign prostatic hyperplasia): Plan: Continue with home dose of Flomax. Plan Continue with current treatment, await placement, arrangements with cardiology to be made upon discharge for Zio patch. Admission and Anticipated Discharge Date Admission Date: March 12, 2024 Subjective Patient is a 68-year-old gentleman with prior history of hyperlipidemia, hypertension, prediabetes BPH PORSCHE who was admitted to the hospital for right- sided numbness and weakness. On my examination he definitely had some decreased sensation over the right side of the face but on motor examination he appeared well, MRI of the brain showed multiple foci of diffusion restriction in both cerebellum and right middle cerebral vermis and a spot over the posterior right medulla oblongata suggestive of acute ischemic stroke. He did have some element of encephalomalacia in both cerebellar hemispheres, Along with some microvascular changes and an area over the right basal ganglia looked likely an old lacunar infarct. EKG did not show any rhythm abnormality, telemetry monitoring also did not show any underlying atrial fibrillation. Echocardiogram showed ejection fraction 60 to 65% and grade 1 diastolic LV dysfunction without any other finding. Patient was seen by neurology, recommended to remain on dual antiplatelets therapy, and we plan to send the patient as outpatient for Zio patch. Patient was seen by PT and acute rehab was recommended, Overnight we did every 2 hours neurological monitoring and no issue came up. CT of the head which was done for follow-up showed no abnormality of new nature. Patient was seen and examined, clinically stable, medically stable for DC, discussed with case management and currently awaiting a rehab bed. Physical Exam Physical Exam: VITALS: Reviewed. WEIGHT/BMI reviewed. GEN: Healthy appearing, well-developed, NAD. CV: RRR, no m/r/g. LUNGS: CTAB, no w/r/c. ABD: Soft, NT/ND, NBS, no masses or organomegaly. EXT: No clubbing, cyanosis, or edema. NEURO: Ongoing right facial numbness, and some sensory deficit over the right upper and lower extremities, even though motor examination is unremarkable on the right however patient has balance issues which is reasonable considering the extent of cerebellar involvement. Results & Data Results & Data Vital Signs (Past 12 Hours) Vital Signs Temp Pulse Pulse Resp BP Pulse Ox O2 Del Method 03/14/24 08:22 36.3 C L 84 16 154/93 H 97 Room Air 03/14/24 03:50 36.6 C 83 20 120/76 96 Room Air 03/14/24 00:48 86 03/13/24 22:00 36.4 C L 90 18 130/77 95 Room Air Laboratory Results Laboratory Results - last 24 hr 03/14/24 05:53 WBC 6.71 RBC 5.23 Hgb 16.2 Hct 46.7 MCV 89.3 MCH 31.0 MCHC 34.7 RDW Std Deviation 45.2 RDW Coeff of Jose M 13.9 Plt Count 269 MPV 9.5 Immature Gran % (Auto) 0.3 Neut % (Auto) 55.8 Lymph % (Auto) 30.6 [place] % (Auto) 12.1 Eos % (Auto) 0.6 Baso % (Auto) 0.6 Neut # (Auto) 3.75 Lymph # (Auto) 2.05 [place] # (Auto) 0.81 H Eos # (Auto) 0.04 Baso # (Auto) 0.04 Immature Gran # (Auto) 0.02 Sodium 138 Potassium 4.0 Chloride 106 Carbon Dioxide 26 Anion Gap 6 BUN 15 Creatinine 0.98 Est Cr Clr Drug Dosing 74.8 eGFR 83.99 BUN/Creatinine Ratio 15.3 Glucose 102 H Calcium 8.[address] 03/14/24 08:00 CT head/brain wo con CLINICAL HISTORY: 68 years-old Male with Follow-up stroke. TECHNIQUE: Multiple axial CT images of the head were obtained without contrast. A dose lowering technique was utilized adhering to the principles of ALARA. CT DOSE: 547.75 mGy.cm COMPARISON: Head CT and brain MRI exam 03/12/2024. FINDINGS: No acute intracranial hemorrhage, midline shift, intracranial mass, hydrocephalus, or abnormal extra-axial collection. Encephalomalacia within the cerebellum redemonstrated. Involutional changes with mild white matter hypodensities redemonstrated suggestive of chronic microvascular ischemic disease. 1.2 cm ill-defined hypodense focus within the subcortical superior right frontal lobe is unchanged from prior which appears chronic. Acute right- sided cerebellar infarcts seen on MRI are difficult to visualize by CT. Prior left suboccipital craniectomy. The paranasal sinuses, mastoid air cells, and middle ear cavities are clear. IMPRESSION: 1. The small acute cerebellar infarcts seen on the recent MRI exam are suboptimally visualized by CT. 2. No acute intracranial hemorrhage, midline shift or acute territorial infarct. 3. Involutional changes with chronic microvascular disease. 4. Prior suboccipital craniectomy with cerebellar encephalomalacia redemonstrated. ACT 112: Negative or not required by law. The above report was generated using voice recognition software. It may contain grammatical, syntax or spelling errors. Electronically signed by: Barry Little M.D. 03/14/2024 8:24 AM Medications Administered Current Inpatient Medications Acetaminophen (Acetaminophen 325 Mg Tab) 650 mg PO Q6H PRN PRN Reason: Pain Stop: 04/12/24 19:38 Last Admin: 03/14/24 08:26 Dose: 650 mg Albuterol (Albut/Ipratrop 3mg/0.5mg Neb 3 Ml Vial) 3 ml NEB Q6R PRN; Protocol PRN Reason: Shortness Of Breath Stop: 04/11/24 17:35 Albuterol (Albuterol Hfa 8 Gm Inhaler) 2 puffs INH Q6H PRN PRN Reason: shortness of breath or wheezing Stop: 04/11/24 19:23 Aspirin (Aspirin 81 Mg Ectab) 81 mg PO DAILY [facility] Stop: 04/12/24 08:59 Last Admin: 03/14/24 08:20 Dose: 81 mg Clopidogrel Bisulfate (Clopidogrel Bisulfate 75 Mg Tab) 75 mg PO QAM [facility] Stop: 04/12/24 13:44 Last Admin: 03/14/24 08:20 Dose: 75 mg Enoxaparin Sodium (Enoxaparin Inj 40 Mg/0.4 Ml Syr) 40 mg SQ Q24H [facility] Stop: 04/11/24 19:59 Last Admin: 03/13/24 19:59 Dose: 40 mg Finasteride (Finasteride 5 Mg Tab) 5 mg PO DAILY [facility] Stop: 04/12/24 08:59 Last Admin: 03/14/24 08:20 Dose: 5 mg Fluticasone Furoate (Fluticasone Furoate 200mcg 14 Puffs/Inhaler) 1 puffs INH DAILY [facility] Stop: 04/12/24 08:59 Last Admin: 03/14/24 08:21 Dose: 1 puffs Montelukast Sodium (Montelukast Sodium 10 Mg Tablet) 10 mg PO DAILY [facility] Stop: 04/12/24 08:59 Last Admin: 03/14/24 08:21 Dose: 10 mg Rosuvastatin Calcium (Rosuvastatin Calcium 20 Mg Tab) 40 mg PO QAM [facility] Stop: 04/12/24 13:44 Last Admin: 03/14/24 08:20 Dose: 40 mg Tamsulosin HCl (Tamsulosin Hcl 0.4 Mg Cap) 0.4 mg PO DAILY [facility] Stop: 04/12/24 08:59 Last Admin: 03/14/24 08:20 Dose: 0.4 mg Umeclidinium/Vilanterol (Umeclidinium/Vilanterol 62.5/25mcg 7 Puffs/Inhaler) 1 puffs INH DAILY [facility] Stop: 04/12/24 08:59 Last Admin: 03/14/24 08:21 Dose: 1 puffs (2) BPH (benign prostatic hyperplasia) Lower urinary tract symptom presence: symptoms absent Qualified Code(s): N40.0 - Benign prostatic hyperplasia without lower urinary tract symptoms
[2024-03-15 06:06] LABS: Basophils # (auto) 0.05 K/uL (0.00-0.20); Basophils % (auto) 0.6 %; Eosinophils # (auto) 0.05 K/uL (0.00-0.50); Eosinophils % (auto) 0.6 %; Hematocrit (blood only) 46.5 % (42.0-52.0); Immature Granulocytes # (auto) 0.02 K/uL (0.01-0.20); Immature Granulocytes % (auto) 0.3 %; Lymphocytes # (auto) 1.85 K/uL (1.20-3.40); Lymphocytes % (auto) 23.3 %; Mean Corpuscular Hemoglobin 30.7 pg (25.0-34.0); Mean Corpuscular Hgb Conc 34.4 g/dL (32.0-36.0); Mean Corpuscular Volume 89.3 fL (80.0-100.0); Mean Platelet Volume 9.7 fL (9.4-12.4); Monocytes # (auto) 0.95 K/uL (0.11-0.59); Monocytes % (auto) 11.9 %; Neutrophils # (auto) 5.03 K/uL (1.40-6.50); Neutrophils % (auto) 63.3 %; Platelet Count 268 K/uL (130-400); RDW Coefficient of Variation 13.7 % (11.5-14.5); RDW Standard Deviation 44.8 fL (36.4-46.3); Red Blood Count 5.21 M/uL (4.70-6.10); White Blood Count 7.95 K/ul (4.8-10.8)
[2024-03-15 06:31] LABS: BUN Creatinine Ratio 15.9 (10-20); Calcium 9.1 mg/dl (8.6-10.3); Creatinine Clr Calc Pharmacy 68.5 ml/min
--- NOTE | 2024-03-15 08:28 | Discharge Summary ---
Discharge Summary Date of Service March 15, 2024 Principal Dx & Hospital Course #1 = Principal Diagnosis (1) Acute ischemic multifocal multiple vascular territories stroke: (2) BPH (benign prostatic hyperplasia): (3) PORSCHE (obstructive sleep apnea): (4) Hypertension, essential: (5) Dyslipidemia: Notes For Next Care Provider Medication Changes From Visit Aspirin 81 mg daily Plavix 75 mg daily for 30 days only Crestor was increased to 40 mg daily Admission HPI Per Admitting Provider Patient is a 68-year-old gentleman with prior history of hyperlipidemia, hypertension, prediabetes BPH PORSCHE who was admitted to the hospital for right- sided numbness and weakness. On my examination he definitely had some decreased sensation over the right side of the face but on motor examination he appeared well, MRI of the brain showed multiple foci of diffusion restriction in both cerebellum and right middle cerebral vermis and a spot over the posterior right medulla oblongata suggestive of acute ischemic stroke. He did have some element of encephalomalacia in both cerebellar hemispheres, Along with some microvascular changes and an area over the right basal ganglia looked likely an old lacunar infarct. EKG did not show any rhythm abnormality, telemetry monitoring also did not show any underlying atrial fibrillation. Echocardiogram showed ejection fraction 60 to 65% and grade 1 diastolic LV dysfunction without any other finding. Patient was seen by neurology, recommended to remain on dual antiplatelets therapy, and we plan to send the patient as outpatient for Zio patch. Patient overall remained stable, seen by PT and OT and rehab was recommended I saw him today, on examination he did not achieve much difference on findings, continues to have deficit on the right side, it seems that patient the plan for sending [facility] worked well and he has a bed today, will proceed with discharging him to rehab. I am in the process of discussing with the on-call cardiology to see how we can arrange Zio patch as outpatient. Updated Medication List Medication Instructions Recorded Confirmed Type albuterol sulfate 90 mcg/actuation 2 puffs inhalation .COMPLEX PRN 11/22/18 03/12/24 Rx aerosol inhaler (Ventolin HFA) shortness of breath or wheezing #18 grams aspirin 81 mg tablet,delayed 81 mg PO DAILY #30 tabs 12/06/18 03/12/24 Rx release lisinopril 10 mg tablet 10 mg PO DAILY 02/06/19 03/12/24 History tamsulosin 0.4 mg capsule 0.4 mg PO DAILY #30 caps 08/09/19 03/12/24 Rx finasteride 5 mg tablet 5 mg PO DAILY #90 tabs 09/20/19 03/12/24 Rx cyclobenzaprine 10 mg tablet 10 mg PO TID PRN muscle spasm #20 11/30/19 03/12/24 Rx tabs budesonide 160 mcg-glycopyr 9 1 inh inhalation BID 03/12/24 03/12/24 History mcg-formot 4.8 mcg/actuation HFA inhaler (Breztri Aerosphere) gabapentin 100 mg capsule 300 mg PO HS PRN Pain 03/12/24 03/12/24 History montelukast 10 mg tablet 10 mg PO DAILY 03/12/24 03/12/24 History clopidogrel 75 mg tablet 75 mg PO QAM 30 days #30 tabs 03/15/24 Rx rosuvastatin 20 mg tablet 40 mg (2 x 20 mg) PO QAM 30 days 03/15/24 Rx #60 tabs Hospital Stay Data Consultations 03/12/24 14:08 ED Decision to Admit Stat 03/12/24 19:24 Consult Neurology Routine Diagnostic Imagining Performed 03/12/24 11:26 CT head/brain wo con Stat CTA head w con [CT angio head w con] Stat CTA neck with con [CT angio neck with con] Stat 03/12/24 14:38 MR brain wo con Routine 03/12/24 14:46 US venous doppler LE RT Stat 03/14/24 08:[address] [CT head/brain wo con] Routine Pending Results Patient Have Any Pending Studies at Discharge: No Discharge Instructions Given to Patient (Per Discharging Provider) Follow-up with cardiology for having Zio patch and monitoring for possible A-fib if present Total Time Total Time Spent Total Time Spent (In Minutes): More than 35 minutes
[2024-03-16 17:48] LABS: 7-Aminoclonazepam DNR ng/mL (<25); Alpha-Hydroxyalprazolam DNR ng/mL (<25); Alphahydroxymidazolam DNR ng/mL (<50); Alphahydroxytriazolam DNR ng/mL (<50); Amobarbital DNR ng/mL (<100); Amphetamines, Ur NEGATIVE ng/mL (<500); Amphetemines Ur GC/MS DNR ng/mL (<250); Barbiturates, Urine NEGATIVE ng/mL (<300); Benzodiazepines,Ur NEGATIVE ng/mL (<100); Butalbital DNR ng/mL (<100); Cocaine, Urine NEGATIVE ng/mL (<150); Cocaine,Ur GC/MS DNR ng/mL (<100); Codeine DNR ng/mL (<50); Confirmatory Facility DNR; EDDP DNR ng/mL (<100); Hydrocodone DNR ng/mL (<50); Hydromorphone DNR ng/mL (<50); Hydroxyethylflurazepam DNR ng/mL (<50); Lorazepam DNR ng/mL (<50); Methadone, Ur GC/MS NEGATIVE ng/mL (<100); Methadone, Urine DNR ng/mL (<100); Methamphetamine DNR ng/mL (<250); Morphine DNR ng/mL (<50); Norhydrocodone DNR ng/mL (<50); Noroxycodone DNR ng/mL (<50); Opiates, Urine NEGATIVE ng/mL (<100); Oxycodone,Ur Screen NEGATIVE ng/mL (<100); Pentobarbital DNR ng/mL (<100); Phencyclidine, Ur NEGATIVE ng/mL (<25); Phencyclidine,Ur GC/MS DNR ng/mL (<25); Secobarbital DNR ng/mL (<100); THC20, Qual, Urine POSITIVE ng/mL (<20); Temazepam DNR ng/mL (<50); Tetrahydrocannabinol 232 ng/mL (<5)
== END 2024-03-15 15:09 | DRG 66 ==
LOC: ED 11:02 → SUATTDRO 14:36 → EDINP 14:36 → 2N 19:25